=== PATIENT | female | born 1960 | race Caucasian/White ===

== ENCOUNTER 2017-07-29 22:40 | Inpatient (IN) | payer MEDICARE, MEDICAID ==
--- NOTE | 2017-07-29 23:21 | ED.PDOC ---
History of Present Illness - General Chief Complaint: Trauma Stated Complaint: fall with dizziness Time Seen by Provider: 07/29/17 22:55 Source: patient, RN notes reviewed, Vital Signs reviewed, family - son Exam Limitations: no limitations - History of Present Illness Initial Comments: Patient present to ER with c/o L knee pain after a fall. Reports she was returning home from [facility] around 20:30 and got dizzy walking to the house and fell injuring her L knee and hand. She was discharged from [facility] in [place] earlier today. She had a cardiac cath with stent placement there. She also is having SOB when she lays back and her ankles are swollen. These symptoms are unchanged from when she was discharged from the hospital. She was on a Lasix drip while in hospital and is suppose to take Lasix 40mg BID but has not taken her evening dose yet. Timing/Duration: momentarily Severity: mild Improving Factors: rest Worsening Factors: movement Associated Symptoms: shortness of breath Allergies/Adverse Reactions: Allergies Morphine Allergy (Verified 07/29/17 23:32) Home Medications: Ambulatory Orders Acyclovir [Zovirax] 800 mg PO Q8HR #12 tab 03/24/15 Mupirocin 2 % Oint [Bactroban Oint] 1 applic TOP BID #1 appli 03/24/15 Review of Systems - Review of Systems Constitutional: States: no symptoms reported Respiratory: States: see HPI, short of breath. Denies: cough Cardiology: States: see HPI, edema Gastrointestinal/Abdominal: States: no symptoms reported Musculoskeletal: States: joint pain - L knee, joint swelling - L knee Skin: States: other - abrasions L hand/wrist Neurological: States: see HPI, other - Report she does get dizzy when she takes her Coreg. Denies: headache, numbness, paresthesia, tingling, weakness All other Systems: No Change from Baseline Past Medical History (General) - Patient Medical History Hx Stroke: No Hx Cardiac Disorders: Yes - AK Hx Congestive Heart Failure: Yes Hx Hypertension: Yes Hx Thyroid Disease: Yes Hx Diabetes: Yes Hx Gastroesophageal Reflux: Yes Hx Cancer: No Hx Hepatitis C: No Hx MRSA: Yes MRSA Source:: Wound Surgical History: cholecystectomy, coronary bypass surgery - Vaccination History Hx Tetanus, Diphtheria Vaccination: Yes Hx Influenza Vaccination: Yes Hx Pneumococcal Vaccination: Yes Immunizations Up to Date: Yes - Social History Hx Tobacco Use: Yes Hx Alcohol Use: No Hx Substance Use: No Hx Substance Use Treatment: No Hx Depression: No Hx Physical Abuse: No Hx Emotional Abuse: No Hx Suspected Abuse: No - Female History Patient is a Female of Child Bearing Age (10 -59 yrs old): Yes Patient : No Family Medical History - Family History Mother Living Status: Hx Cardiac Disease: Yes Physical Exam - Physical Exam General Appearance: Agitated, Comfortable, No apparent distress, Well Developed , Well Groomed, Well Hydrated, Well Nourished Ears, Nose, Throat: hearing grossly normal Neck: supple, normal inspection Respiratory: no respiratory distress, no accessory muscle use Peripheral Pulses: dorsalis pedis,right: 2+, dorsalis pedis,left: 2+ Extremity: pedal edema - 1-2+ bilateral ankles, swelling - L knee: swelling with few abrasions and bruising. Tender over patella and medial tibial plateau Neurologic: no motor/sensory deficits, alert, normal mood/affect, oriented x 3 Skin Exam: normal color, warm/dry, other - L thenar eminence: 2 abrasions Comments: Vital Signs 07/29/17 22:58 Temperature 98.2 F Pulse Rate [ 70 Left Radial] Respiratory 22 Rate Blood Pressure 137/64 [Left Arm] O2 Sat by Pulse 88 L Oximetry Progress - Progress Progress: 07/30/17 00:[address] Hung - will admit for CHF - Results/Orders Results/Orders: Laboratory Tests 07/29/17 23:30 B-Natriuretic Peptide 1070.0 H* - EKG/XRAY/CT XRAY: knee - Linear lucency of tibia tuberocity - may represent a non-displaced fracture per Radiologist. - Additional EKG/XRAY/Consults XRAY #2: chest - Cardiomegaly with interstitial pulmonary edema per Radiologist. Departure - Departure Clinical Impression: Congestive heart failure (CHF) Qualifiers: Congestive heart failure type: unspecified congestive heart failure type Congestive heart failure chronicity: acute on chronic Qualified Code(s): I50.9 - Heart failure, unspecified Fracture of tibial tuberosity Qualifiers: Encounter type: initial encounter Fracture type: closed Fracture alignment: nondisplaced Laterality: left Qualified Code(s): S82.155A - Nondisplaced fracture of left tibial tuberosity, initial encounter for closed fracture Time of Disposition: 00:50 Disposition: Admit Patient Condition: Poor Home Medications: Ambulatory Orders Acyclovir [Zovirax] 800 mg PO Q8HR #12 tab 03/24/15 Mupirocin 2 % Oint [Bactroban Oint] 1 applic TOP BID #1 appli 03/24/15 Decision To Admit - Decistion To Admit Decision to Admit Reason: Admit from ER Decision to Admit Date: 07/30/17 Decision to Admit Time: 00:42
--- NOTE | 2017-07-29 23:41 | RAD ---
EXAM DESCRIPTION: Chest,1 View CLINICAL HISTORY: SOB/worse with laying back COMPARISON: None. FINDINGS: Single frontal view of the chest. Cardiomegaly with pulmonary vascular congestion. Prior median sternotomy. Interstitial edema without large effusion or pneumothorax. Degenerative change of the shoulders. Upper abdominal soft tissues are unremarkable. IMPRESSION: Cardiomegaly with interstitial pulmonary edema. Electronically signed by: Umair Gonzalez 07/29/2017 11:40 PM RAD TECHNOLOGIST
--- NOTE | 2017-07-29 23:44 | RAD ---
EXAM DESCRIPTION: Knee,Left 2 or More Views CLINICAL HISTORY: Fell on L knee. Pain. COMPARISON: None. FINDINGS: Osteopenia. Small joint effusion. Atherosclerotic vascular calcification. Linear lucency over the tibial tuberosity. This may represent a nondisplaced fracture. Postoperative change in the medial aspect of the knee. IMPRESSION: 1. Linear lucency of the tibial tuberosity may represent a nondisplaced fracture. Follow-up radiographs or MRI of the knee may be helpful for more definitive characterization. Electronically signed by: Umair Gonzalez 07/29/2017 11:43 PM [facility]
[2017-07-30] MEDS ORDERED: FUROSEMIDE INJ 40 MG/4 ML VIAL IV ONE (00:44)
[2017-07-30] MEDS ORDERED: ALBUTEROL SULFATE 2.5 MG/3 ML VIAL NEB PRN (01:06)
[2017-07-30] MEDS ORDERED: MAGNESIUM HYDROXIDE 30 ML UD PO PRN (01:06)
[2017-07-30] MEDS ORDERED: ACETAMINOPHEN 325 MG TAB PO PRN (01:06)
[2017-07-30] MEDS ORDERED: NITROGLYCERIN 0.4 MG 25 EA TAB SL PRN (01:06)
--- NOTE | 2017-07-30 01:12 | HP ---
HISTORY OF PRESENT ILLNESS: This 57-year-old, white female was feeling poorly when she went to [facility] last evening after being discharged from [facility] in [place] earlier during the day of yesterday. She apparently lost her balance and fell on her left knee and was unable to support weight on the knee and had significantly worsening shortness of breath. She has had trouble lying down with significant worsening shortness of breath with pedal edema. She is not on a fluid restriction. She has been on some Lasix, but apparently may have even skipped a dose yesterday during the day. She has a lead janitor, Dr. Vazquez, in [place] who discharged her from [facility] yesterday. In the Emergency Room, she had a pulse oximetry of only 88% suggesting a degree of hypoxia. She had had an angiogram performed through probably the left radial artery, but she states they did not do stents or angioplasty. She has had some angina and was originally told she may have a small heart attack at the [facility], which they did not she had heart attack when she was at the [place] cardiology service. She has had coronary artery bypass grafting at [place] in 2014 which was successfully completed. The patient was admitted to the hospital with congestive heart failure, chronic, with an acute exacerbation , poorly compensated and very symptomatic and inability to walk because of the left knee injury requiring orthopedic advice on the best treatment and further diagnostic investigation if needed. Special attention to fall risk. PAST MEDICAL HISTORY: 1. Congestive heart failure. 2. Diabetes mellitus, which she has had for years taking Lantus 40 units in the morning and 20 units in the evening. 3. History of coronary artery disease as well as chronic obstructive pulmonary disease in a chronic smoker, now stopped for two weeks. PAST SURGICAL HISTORY: 1. Cholecystectomy. 2. Three C-sections. 3. Coronary artery bypass grafting in 2015 in [place]. CURRENT MEDICATIONS: Please refer to nursing notes. ALLERGIES: MORPHINE. FAMILY HISTORY: Positive for coronary artery disease, diabetes mellitus and cancer. SOCIAL HISTORY: She has been a cook in restaurants and is currently living with her son in [place]. She stopped smoking about two weeks ago and is encouraged to stay stopped. REVIEW OF SYSTEMS: GENERAL: The patient admits to having gained about 8 pounds over the last week, especially while in the [facility], which may be attributed to by some of the fluid accumulation during the transition period. LUNGS: Significant shortness of breath on exertion as well as on lying down. CARDIOVASCULAR: No significant chest pains at this time. No palpitations. History of congestive heart failure worsening. GASTROINTESTINAL: Some nausea without emesis. No bleeding int he stools. GENITOURINARY: No dysuria. NEUROLOGIC: No focal neurologic weakness, but she is generally weak all over. PHYSICAL EXAMINATION: VITAL SIGNS: Afebrile. Pulse 71. Blood pressure 175/81. Pulse oximetry 88% on room air, up to 94% on 2 liters nasal cannula. Weight 75.8 kg on the bed scale, which is approximately 4 kg more than what the patient estimated her weight to be. GENERAL: The patient is fairly awake and alert. She is unable to get up and walk because of pain in her left knee. HEENT: Unremarkable. NECK: There is some increased jugular venous distention at about 45 degrees, primarily on the right side. LUNGS: Some rales upon inspiration, both bases. CARDIOVASCULAR: Heart tones are fairly regular without any significant gallops. ABDOMEN: Soft with no organomegaly, masses or tenderness. EXTREMITIES: Some pitting edema and discomfort especially noted within the knee joint behind the patella on the left. She does have some skin abrasions over the patella from her recent fall. Pedal edema evident. NEUROLOGIC: No significant focal neurological deficits are noted. LABORATORY: White count 9,100, hemoglobin 11.8, 82% neutrophils. Chemistries show sodium 132, potassium 4.8, BUN 17, creatinine 1.42, glucose 108. Hemoglobin A1c pending. TSH almost 4. Troponin elevated at 0.27, possibly as a result of elevated beta natriuretic peptide of 1,070. Albumin 3.1. No cultures. Chest x-ray does show evidence of cardiomegaly with pulmonary edema. Left knee x-ray shows the possibility of a lucent line on the left tibial tuberosity, may represent a nondisplaced fracture. No cortical involvement with the injury otherwise evident. Orthopedic evaluation to determine if further radiographs or MRI would be helpful in ascertaining what the next step in treatment and stabilization will be. ASSESSMENT: 1. Chronic congestive heart failure of undetermined type with an acute exacerbation with elevated beta natriuretic peptide, pedal edema and pulmonary edema on x-ray. 2. Acute fall last evening. 3. Left knee injury with possible tibia fracture with further orthopedic evaluation in progress. 4. Diabetes mellitus, on insulin therapy, awaiting review of her home medications and continue with sliding scale and adjustments of treatment as required. 5. Hyponatremia, probably related to excessive free water, requiring fluid restrictions and gentle loop diuresis. PLAN: Await Dr. Ford's orthopedic evaluation of the left knee before able to get the patient up because of the discomfort and to make sure there is no underlying fracture. Continue with fluid restrictions, gentle diuresis, close followup of I&Os and diabetes management. Recheck lab in the morning. Continue basis treatment and will eventually go home when stable on fluid restrictions, diuresis, and an improved medication program for home use and followup in [place]. #[id number] [facility]
[2017-07-30] MEDS ORDERED: KETOROLAC TROMETHAMINE INJ 30 MG/ML VIAL IV ONE (01:18)
--- NOTE | 2017-07-30 01:26 | PCM.CORE ---
Physician DVT/VTE - 3-4 High Risk Treatments: Sequential Compression Device
[2017-07-30] MEDS: SODIUM CHLORIDE 0.9% (FLUSH) 10 ML SYG IV SCH ×3 (02:43→20:53)
[2017-07-30] MEDS: KETOROLAC TROMETHAMINE INJ 30 MG/ML VIAL IV SCH ×3 (02:43→17:20)
[2017-07-30] MEDS: IV SET AND CAP CHANGE INJ INJ SCH (02:44)
[2017-07-30] MEDS: LEVALBUTEROL NEBS 1.25 MG/3 ML VIAL INH SCH ×4 (03:15→21:00)
[2017-07-30] MEDS ORDERED: POTASSIUM CHLORIDE 20 MEQ TAB ONE ×2 (08:39→19:56)
[2017-07-30] MEDS ORDERED: SODIUM CHLORIDE 0.9% 10 ML VIAL ONE (08:39)
[2017-07-30] MEDS: ASPIRIN (CHEWABLE) 81 MG TAB PO SCH (08:48)
[2017-07-30] MEDS: FUROSEMIDE INJ 20 MG/2 ML VIAL IV SCH ×2 (08:48→17:21)
[2017-07-30] MEDS: RAMIPRIL 2.5 MG CAP PO SCH (08:48)
[2017-07-30] MEDS: POTASSIUM CHLORIDE 10 MEQ TAB PO SCH (08:51)
[2017-07-30] MEDS: traMADol HCL 50 MG TAB PO PRN ×3 (09:39→16:25)
[2017-07-30] MEDS ORDERED: GLUCAGON INJ 1 MG VIAL SUBCU PRN (10:20)
[2017-07-30] MEDS ORDERED: DEXTROSE 50% 25 GM/50 ML SYG IV PRN (10:20)
[2017-07-30] MEDS: INSULIN DETEMIR 100 UNITS/ML PEN SUBCU SCH (12:02)
[2017-07-30] MEDS: INSULIN LISPRO 100 UNITS/ML PEN SUBCU SCH ×3 (12:03→21:07)
[2017-07-30] MEDS: SODIUM CHLORIDE 0.9% (FLUSH) 10 ML SYG IV PRN (17:24)
[2017-07-30] MEDS: ISOSORBIDE MONONITRATE (IMDUR) 30 MG TAB PO SCH (20:47)
[2017-07-30] MEDS: cloNIDine HCL 0.1 MG TAB PO SCH (20:47)
[2017-07-30] MEDS: CARVEDILOL 3.125 MG TAB PO SCH (20:47)
[2017-07-30] MEDS: GABAPENTIN 300 MG CAP PO SCH (20:51)
[2017-07-30] MEDS ORDERED: NON-FORMULARY MEDICATION 1 EA MIS (Potassium Chloride [Potassium Chloride Er] 20 MEQ) PO SCH (21:00)
[2017-07-31] MEDS: KETOROLAC TROMETHAMINE INJ 30 MG/ML VIAL IV SCH ×2 (01:25→10:28)
[2017-07-31] MEDS: traMADol HCL 50 MG TAB PO PRN ×2 (06:08→17:19)
--- NOTE | 2017-07-31 06:48 | RAD ---
Procedure: XR CHEST 1 VIEW Exam Date: 07/31/2017 Ordering Provider: EDMUNDO GRAVES Clinical Indication: CHF Comparison: 07/29/2017 Findings: Residuals of thoracic surgery. Cardiomediastinal silhouette is stable. Focal lung consolidation: Central vascular congestion with interstitial prominence bilaterally. No focal lung consolidation. Pleural effusion: No large pleural effusions. Pneumothorax: None Bones and soft tissues: No acute osseous abnormalities. Impression: 1. Mild CHF without significant pleural effusion. Electronically signed by: Gera Brothers MD 07/31/2017 6:47 AM [facility]
[2017-07-31] MEDS: INSULIN LISPRO 100 UNITS/ML PEN SUBCU SCH ×4 (07:07→20:51)
--- NOTE | 2017-07-31 08:05 | CONS ---
CHIEF COMPLAINT: Left knee pain. HISTORY OF PRESENT ILLNESS: Ms. Saravia is a 57-year-old female that fell on the day of presentation. She had ended up with knee pain. She denied any other trauma related to this fall, but states she has pain in the knee that is preventing her from doing walking. She has been admitted and I was consulted for this. PAST MEDICAL HISTORY: 1. Congestive heart failure. 2. Diabetes. 3. Coronary artery disease. PAST SURGICAL HISTORY: 1. Cholecystectomy. 2. Three . 3. Bypass grafting. MEDICATIONS: Please refer to the updated nursing list. ALLERGIES: MORPHINE. SOCIAL HISTORY: The patient does not drink or use any illicit drugs. She does smoke. FAMILY HISTORY: Positive for coronary artery disease and diabetes. REVIEW OF SYSTEMS: Negative except as indicated in the History of Present Illness. PHYSICAL EXAMINATION: VITAL SIGNS: Blood pressure 175/81. Pulse oximetry 88%. Weight 75.8. Pulse 71. Afebrile. MENTAL STATUS: The patient is awake, alert, and is able to give a good history and participate in the physical. The patient is oriented to person, place and time. SKIN: Normal tone and turgor. HEENT: Normocephalic, atraumatic. Pupils equal, round and reactive. Mucosal membranes are moist. NECK: Normal range of motion. No thyromegaly, no lymphadenopathy. CHEST: Normal respiratory excursion. CARDIAC: Regular rate and rhythm. No murmurs, rubs or gallops. MUSCULOSKELETAL: Bilateral upper extremities show full active range of motion without pain. She has intact sensation. They are warm and well perfused. There are no deformities and no evidence of trauma. The right lower extremity shows full range of motion of the hip. There is no malalignment of the extremity. The knee shows full range of motion. Sensation is intact. There is no evidence of trauma. She has no crepitus with range of motion. The left lower extremity shows full range of motion of the hip although range of motion of the knee is somewhat decreased. She is fully extend it and she is bending it although she does complain of pain. She does have some superficial abrasions. Sensation is intact. It is warm and well perfused. There is no significant effusion right now. IMAGING: I do not see any evidence of fracture on the x-ray, however, the radiologist was concerned that there may be a nondisplaced fracture. As such, I have requested an MRI, however, we are still waiting on that MRI to get done. PLAN: Until the MRI is done, we will keep her in bed and [id number]. We have discussed the risks, benefits, and alternatives to that and the patient has given informed consent. #[id number] [facility]
[2017-07-31] MEDS: POTASSIUM CHLORIDE 10 MEQ TAB PO SCH (08:12)
[2017-07-31] MEDS ORDERED: FUROSEMIDE 40 MG TAB PO SCH (09:00)
[2017-07-31] MEDS ORDERED: POTASSIUM CHLORIDE 20 MEQ TAB PO SCH (09:00)
[2017-07-31] MEDS: LEVALBUTEROL NEBS 1.25 MG/3 ML VIAL INH SCH ×3 (09:05→20:45)
[2017-07-31] MEDS: ISOSORBIDE MONONITRATE (IMDUR) 30 MG TAB PO SCH (10:27)
[2017-07-31] MEDS: CLOPIDOGREL 75 MG TAB PO SCH (10:27)
[2017-07-31] MEDS: GABAPENTIN 300 MG CAP PO SCH ×3 (10:28→20:44)
[2017-07-31] MEDS: PANTOPRAZOLE SODIUM TAB 40 MG PO SCH (10:28)
[2017-07-31] MEDS: CARVEDILOL 3.125 MG TAB PO SCH ×2 (10:28→20:44)
[2017-07-31] MEDS: RAMIPRIL 2.5 MG CAP PO SCH (10:28)
[2017-07-31] MEDS: cloNIDine HCL 0.1 MG TAB PO SCH ×3 (10:29→20:44)
[2017-07-31] MEDS: amLODIPine BESYLATE 5 MG TAB PO SCH (10:29)
[2017-07-31] MEDS: SODIUM CHLORIDE 0.9% (FLUSH) 10 ML SYG IV SCH ×2 (10:29→20:45)
[2017-07-31] MEDS: ASPIRIN (CHEWABLE) 81 MG TAB PO SCH (10:29)
[2017-07-31] MEDS: INSULIN DETEMIR 100 UNITS/ML PEN SUBCU SCH (10:32)
[2017-07-31] MEDS: PARoxetine HCL 20 MG TAB PO SCH (10:33)
[2017-07-31] MEDS: FUROSEMIDE INJ 20 MG/2 ML VIAL IV SCH ×2 (11:28→17:20)
--- NOTE | 2017-07-31 12:26 | MRI ---
EXAM DESCRIPTION: MRI left knee CLINICAL HISTORY: Fall injury 2 days ago. Left knee fracture COMPARISON: Plain radiograph 07/29/2017 TECHNIQUE: Multiplanar, multisequence MR images of the left knee FINDINGS: Nondisplaced fracture of the anterior tibia, oblique transverse across the tibial tubercle and stellate trabecular microfracture extending into the epiphysis and metaphysis. There is no cortical offset. Minimal nondisplaced trabecular fracture extension to the anterior margin of the lateral tibial plateau. Axial images demonstrate the fracture marginating the tibial tubercle superiorly. No other fracture ACL, PCL, MCL and fibular collateral ligaments are intact No medial or lateral meniscal tear. Medial femorotibial chondrosis with chondral thinning and surface irregularity. No full-thickness chondral loss or focal osteochondral lesion Medial facet patellar chondrosis with chondral fissuring and a tiny focus of edema. Femoral trochlear cartilage intact Biceps femoris, popliteus and iliotibial band tendons are intact. Patellar and quadriceps tendons and tendons of the posterior medial knee are intact Moderate joint effusion. No intra-articular body IMPRESSION: Nondisplaced fracture of the anterior tibia involving the tibial tubercle with stellate trabecular microfracture extending into the metaphysis and anterior lateral epiphysis Electronically signed by: Hay Turner MD 07/31/2017 12:25 PM [facility]
[2017-07-31] MEDS ORDERED: GABAPENTIN 300 MG CAP ONE (15:48)
--- NOTE | 2017-07-31 20:02 | PN ---
DATE: 07/31/17 SUPERVISING PHYSICIAN: Eugenio Norman M.D. SUBJECTIVE: The patient is resting in bed. She has no complaints of chest pains, nausea or vomiting. She has had her leg elevated and has good pain control. She remains afebrile. OBJECTIVE: VITAL SIGNS: Temperature 97.8, pulse 66, blood pressure 139/82, respirations 19, satting 92% on nasal cannula at rest at 1 liter. I's and O's show a negative balance of 4290 with 1460 in, 5750 out, weight 69.5 kg. CHEST: Lungs still have very faint rales more so on the left than the right towards the bases and slightly diminished. HEART: Regular rate and rhythm. ABDOMEN: Soft, non-tender. Positive bowel sounds. EXTREMITIES: No clubbing, cyanosis or edema today. The abrasion over the patellar area of the left knee shows to be clean with minimal swelling. NEUROLOGIC: She is alert and oriented times three. LABORATORY: CBC shows a white count of 6,900 with hemoglobin 10.6, hematocrit 31.3, platelet count 165,000. Differential shows to be within normal limits. Chemistries show normal electrolytes with potassium 4.4, BUN 22, creatinine 1.58 , glucoses have been fairly well controlled between 129 and 181, calcium 8.2. Troponin does show elevation at 0.34. RADIOLOGY: Pending MRI of the left knee. Chest x-ray single view chest per radiology interpretation today shows mild congestive heart failure without any significant pleural effusion. ASSESSMENT: 1. Acute on chronic congestive heart failure with undetermined etiology with acute exacerbation with a review of medical records from last cardiovascular angiogram performed at [facility] this past week shows an ejection fraction of 35% with the patient having an elevated BNP on admission, pedal edema and pulmonary edema on x-ray. The patient showing good response to loop diuretics and fluid restriction. 2. Acute fall same level with concern for a possible tibia fracture with orthopedic evaluation and MRI pending. 3. Diabetes mellitus on insulin therapy showing to be stable on sliding scale. 4. Hyponatremia secondary to excessive free water intake requiring fluid restrictions and gentle loop diuresis showing improvement with treatment. PLAN: Will continue to have the patient nonweightbearing until further evaluated with MRI of the left knee and further recommendations per orthopedic services with Dr. Ford. Will continue with diuresis with Lasix and monitor her I 's and O's closely as well as her laboratory studies. Will recheck labs in the morning. I have requested medical records if possible from [facility] and Discharge Summary for further evaluation of past findings on hospitalization while at [facility]. Will continue with current treatment plan until the patient shows to be clinically stable. Until then, continue to monitor and treat appropriately. Once discharged, the patient will be continued as an outpatient treatment plan and closely followup with her primary care provider in [place], [place]. [facility][id number] [facility]
[2017-08-01] MEDS: traMADol HCL 50 MG TAB PO PRN ×3 (06:12→20:56)
[2017-08-01] MEDS: PANTOPRAZOLE SODIUM TAB 40 MG PO SCH (06:12)
--- NOTE | 2017-08-01 06:44 | RAD ---
EXAM DESCRIPTION: Chest,1 View CLINICAL HISTORY: CHF COMPARISON: 07/31/2017 FINDINGS: Single frontal view of the chest. Cardiomegaly. Prior median sternotomy. Bilateral interstitial opacities. No pneumothorax or definite pleural effusion. Leads overlie the chest. Postoperative change in the right upper abdomen. IMPRESSION: 1. Cardiomegaly with pulmonary edema. No significant change. Electronically signed by: Umair Gonzalez 08/01/2017 6:43 AM [employer] C[employer]
[2017-08-01] MEDS: INSULIN LISPRO 100 UNITS/ML PEN SUBCU SCH ×4 (07:44→20:52)
[2017-08-01] MEDS: POTASSIUM CHLORIDE 10 MEQ TAB PO SCH (07:47)
[2017-08-01] MEDS: LEVALBUTEROL NEBS 1.25 MG/3 ML VIAL INH SCH ×3 (08:33→20:11)
[2017-08-01] MEDS: INSULIN DETEMIR 100 UNITS/ML PEN SUBCU SCH (09:16)
[2017-08-01] MEDS: GABAPENTIN 300 MG CAP PO SCH ×2 (09:22→20:50)
[2017-08-01] MEDS: CLOPIDOGREL 75 MG TAB PO SCH (09:22)
[2017-08-01] MEDS: PARoxetine HCL 20 MG TAB PO SCH (09:23)
[2017-08-01] MEDS: CARVEDILOL 3.125 MG TAB PO SCH ×2 (09:24→20:50)
[2017-08-01] MEDS: amLODIPine BESYLATE 5 MG TAB PO SCH (09:24)
[2017-08-01] MEDS: cloNIDine HCL 0.1 MG TAB PO SCH ×3 (09:24→20:50)
[2017-08-01] MEDS: ISOSORBIDE MONONITRATE (IMDUR) 30 MG TAB PO SCH (09:24)
[2017-08-01] MEDS: RAMIPRIL 2.5 MG CAP PO SCH (09:24)
[2017-08-01] MEDS: FUROSEMIDE INJ 20 MG/2 ML VIAL IV SCH ×2 (09:24→17:27)
[2017-08-01] MEDS: ASPIRIN (CHEWABLE) 81 MG TAB PO SCH (09:24)
[2017-08-01] MEDS: SODIUM CHLORIDE 0.9% (FLUSH) 10 ML SYG IV SCH ×2 (09:24→20:50)
--- NOTE | 2017-08-01 15:17 | PN ---
DATE: 08/01/17 The MRI that we ordered did get done now. It appears that she has a nondisplaced fracture of the anterior tibia. Because of this fracture we need to be very careful with her weightbearing status because it does look as though it is on the anterior aspect, although nondisplaced I do want to have her both nonweightbearing and in an immobilizer for the time being. We are going to start with physical therapy and she is going to be transfers only. #[id number] [facility]
[2017-08-01] MEDS: SODIUM CHLORIDE 0.9% (FLUSH) 10 ML SYG IV PRN (17:27)
[2017-08-01] MEDS: ENOXAPARIN SODIUM 40 MG/0.4 ML SYG SUBCU SCH (17:27)
--- NOTE | 2017-08-01 22:36 | PN ---
DATE: 08/01/17 SUPERVISING PHYSICIAN: Eugenio Norman M.D. SUBJECTIVE: The patient is resting in bed with her leg elevated. She has had good pain control. She remains with a [place] in place for accurate I's and O's and continues with Lasix showing good response. She has had no chest pains, nausea or vomiting. OBJECTIVE: VITAL SIGNS: Temperature 98.6, pulse 65, blood pressure 148/84, respirations 20, satting 96% on nasal cannula at rest at 1 liter. I's and O's show a negative balance of 810 with 1340 in, 2150 out. Weight is 60.3 kg. CHEST: Lungs are much improved today, continue to be diminished towards the bases but no rales or rhonchi are noted. HEART: Regular rate and rhythm. ABDOMEN: Soft, non-tender. Positive bowel sounds. EXTREMITIES: No clubbing, cyanosis or edema. NEUROLOGIC: She was alert and oriented times three. RADIOLOGY: Chest x-ray per radiology interpretation of single view chest shows cardiomegaly with pulmonary edema. No significant changes. Her MRI showed a nondisplaced fracture of the anterior left tibia. Please see that report for full details. ASSESSMENT: 1. Acute on chronic congestive heart failure with undetermined etiology with an acute exacerbation with last echocardiogram from medical record review from [place] showing an ejection fraction of 35% with the patient having an elevated BNP on admission having pedal edema and pulmonary edema on x-ray continued but showing good response with loop diuretics and fluid restrictions. 2. Acute same level fall with a nondisplaced fracture of the left anterior tibia as noted on MRI and being followed by Dr. Ford, orthopedic services. 3. Diabetes mellitus on insulin therapy showing some variability in blood sugars continuing to require ongoing management on a sliding scale. 4. Hyponatremia secondary to excessive fluid intake prior to admission showing resolution with diuretics and fluid restrictions. PLAN: The patient will be placed in a knee brace as per Dr. Ford's request. She is nonweightbearing and will need aggressive physical therapy to assist with transfers only. The patient does live with her son but discussed need for ongoing termite technician physical therapy or termite technician care such as [facility] or [facility] or other facility available in [place] given that she is going to be transfer only and nonweightbearing for a length of time. In regards to congestive heart failure, it is showing improving. Will continue with Lasix today and fluid restrictions. Her troponin did showed to be returning to baseline today. Will continue with close monitoring and anticipate hopefully discharging Thursday or Thursday after arrangements can be made for the patient to be placed in either termite technician care facility or fpc, and again with reassessment with physical therapy. Until discharge, will continue to monitor the patient closely and treat appropriately. [facility][id number] [facility]
[2017-08-02] MEDS: IV SET AND CAP CHANGE INJ INJ SCH (05:59)
[2017-08-02] MEDS: PANTOPRAZOLE SODIUM TAB 40 MG PO SCH (06:00)
[2017-08-02] MEDS: POTASSIUM CHLORIDE 10 MEQ TAB PO SCH (08:30)
[2017-08-02] MEDS: INSULIN LISPRO 100 UNITS/ML PEN SUBCU SCH ×4 (08:36→21:26)
[2017-08-02] MEDS: ISOSORBIDE MONONITRATE (IMDUR) 30 MG TAB PO SCH (08:52)
[2017-08-02] MEDS: CLOPIDOGREL 75 MG TAB PO SCH (08:52)
[2017-08-02] MEDS: CARVEDILOL 3.125 MG TAB PO SCH ×2 (08:52→21:26)
[2017-08-02] MEDS: cloNIDine HCL 0.1 MG TAB PO SCH ×3 (08:52→21:26)
[2017-08-02] MEDS: ASPIRIN (CHEWABLE) 81 MG TAB PO SCH (08:52)
[2017-08-02] MEDS: FUROSEMIDE INJ 20 MG/2 ML VIAL IV SCH ×2 (08:52→16:14)
[2017-08-02] MEDS: amLODIPine BESYLATE 5 MG TAB PO SCH (08:52)
[2017-08-02] MEDS: INSULIN DETEMIR 100 UNITS/ML PEN SUBCU SCH (08:53)
[2017-08-02] MEDS: GABAPENTIN 300 MG CAP PO SCH ×2 (08:53→21:26)
[2017-08-02] MEDS: PARoxetine HCL 20 MG TAB PO SCH (08:53)
[2017-08-02] MEDS: RAMIPRIL 2.5 MG CAP PO SCH (08:53)
[2017-08-02] MEDS: SODIUM CHLORIDE 0.9% (FLUSH) 10 ML SYG IV SCH ×2 (08:54→21:27)
[2017-08-02] MEDS: ENOXAPARIN SODIUM 40 MG/0.4 ML SYG SUBCU SCH (08:59)
[2017-08-02] MEDS: traMADol HCL 50 MG TAB PO PRN ×2 (08:59→19:49)
[2017-08-02] MEDS: LEVALBUTEROL NEBS 1.25 MG/3 ML VIAL INH SCH ×3 (09:19→19:45)
--- NOTE | 2017-08-02 18:51 | PN ---
DATE: 08/02/17 SUPERVISING PHYSICIAN: Eugenio Norman M.D. SUBJECTIVE: The patient continues to do well. She was placed in a temporary knee brace yesterday given the nature of her fracture. She remains afebrile. She has shown good response with diuresis and feeling much better. I did discuss with the son and the patient. They are looking at going to a facility in [place] once discharged for continued care. OBJECTIVE: VITAL SIGNS: Temperature 97.6, pulse 52, blood pressure 138/80, respirations 18, satting 97% on nasal cannula at 1 liter at rest. I's and O's show a negative balance of 1860 with 1790 in, 3650 out. Weight 69.5 kg which is up, but the patient did have a brace placed yesterday and I do not think there was compensation for the additional weight. CHEST: Lungs are clear to auscultation, just diminished towards the bases but no rhonchi or rales were noted. HEART: Regular rate and rhythm. ABDOMEN: Soft, non-tender. Positive bowel sounds. EXTREMITIES: No clubbing, cyanosis or edema. Brace is in place over the left leg. Capillary refill distally is strong and brisk. Skin is warm to touch. NEUROLOGIC: She is alert and oriented times three. LABORATORY: Chemistries today show normal electrolytes with BUN 30, creatinine is down to 1.28, glucoses have been in between 106 to 291. ASSESSMENT: 1. Acute on chronic congestive heart failure with undetermined etiology with an acute exacerbation from last echocardiogram [place] [facility] [place] showing an ejection fraction of 35% with the patient having an elevated BNP on admission having pedal edema and pulmonary edema on x-ray initially showing good improvement with good response with loop diuretics and fluid restrictions. 2. Acute same level fall with a nondisplaced fracture of the left anterior tibia as noted on MRI with the patient requiring ongoing physical therapy and no weightbearing status followed by Dr. Jeremy Ford requiring intensive outpatient treatment plan for physical therapy. 3. Diabetes mellitus on insulin therapy showing some variability although fairly stable on a sliding scale. 4. Hyponatremia, resolved felt to be secondary to excessive fluid prior to admission showing good response with diuretics and fluid restrictions. PLAN: The patient was placed in a knee brace yesterday. She will need physical therapy assessment in the morning and to assist with transfers only as she will be nonweightbearing. The family has started discussion with a facility in [place], they are unsure of the name but I've ordered a consultation for [facility] as that is where the patient is anticipating going at time of discharge. Medically the patient has shown good improvement. Will continue again with Lasix today by IV and anticipate hopefully being able to discharge tomorrow. I will transition her to p.o. Lasix. She does remain on fluid restrictions and is doing well. Until discharge, will continue to monitor and treat appropriately. #[id number] [facility]
[2017-08-03] MEDS: PANTOPRAZOLE SODIUM TAB 40 MG PO SCH (06:17)
--- NOTE | 2017-08-03 07:57 | RAD ---
EXAM DESCRIPTION: Chest,1 View CLINICAL HISTORY: Congestive heart failure FINDINGS/ IMPRESSION: Comparison 08/01/2017 Heart size slightly enlarged. Vascular congestion. Mild increased interstitial markings compatible with interstitial edema. This has worsened compared to previous study. No dense alveolar consolidation. No large effusions Electronically signed by: Hay Turner MD 08/03/2017 7:56 AM [facility]
--- NOTE | 2017-08-03 08:17 | PN ---
DATE: 08/03/17 Ms. Saravia did indeed seem to have a fracture and we are going to get her in a hinged knee brace today. She will continue to be [id number] and will followup with us in about 2 weeks. We will consider progressing weight-bearing once we see evidence of healing and improvement in her pain. #[id number] [facility]
[2017-08-03] MEDS: INSULIN LISPRO 100 UNITS/ML PEN SUBCU SCH ×4 (08:24→21:12)
[2017-08-03] MEDS: POTASSIUM CHLORIDE 10 MEQ TAB PO SCH (08:26)
[2017-08-03] MEDS: PARoxetine HCL 20 MG TAB PO SCH (08:26)
[2017-08-03] MEDS: ASPIRIN (CHEWABLE) 81 MG TAB PO SCH (08:27)
[2017-08-03] MEDS: CLOPIDOGREL 75 MG TAB PO SCH (08:27)
[2017-08-03] MEDS: ISOSORBIDE MONONITRATE (IMDUR) 30 MG TAB PO SCH (08:27)
[2017-08-03] MEDS: ENOXAPARIN SODIUM 40 MG/0.4 ML SYG SUBCU SCH (08:27)
[2017-08-03] MEDS: RAMIPRIL 2.5 MG CAP PO SCH (08:27)
[2017-08-03] MEDS: cloNIDine HCL 0.1 MG TAB PO SCH ×3 (08:27→21:03)
[2017-08-03] MEDS: amLODIPine BESYLATE 5 MG TAB PO SCH (08:27)
[2017-08-03] MEDS: GABAPENTIN 300 MG CAP PO SCH ×2 (08:28→21:04)
[2017-08-03] MEDS: SODIUM CHLORIDE 0.9% (FLUSH) 10 ML SYG IV SCH ×2 (08:28→21:04)
[2017-08-03] MEDS: INSULIN DETEMIR 100 UNITS/ML PEN SUBCU SCH (08:35)
[2017-08-03] MEDS: FUROSEMIDE 40 MG TAB PO SCH (08:35)
[2017-08-03] MEDS: traMADol HCL 50 MG TAB PO PRN ×2 (08:46→16:10)
[2017-08-03] MEDS: CARVEDILOL 3.125 MG TAB PO SCH ×2 (08:46→21:04)
[2017-08-03] MEDS: LEVALBUTEROL NEBS 1.25 MG/3 ML VIAL INH SCH ×3 (08:57→21:11)
[2017-08-03] MEDS ORDERED: MAGNESIUM HYDROXIDE 30 ML UD PO ONE (11:20)
--- NOTE | 2017-08-03 11:50 | PN ---
DATE: 08/03/17 SUBJECTIVE: The patient is sitting up in the chair. She is still non-weight- bearing and requires fairly significant assistance in being able to transfer from the bed to the chair. She is wishing her Tidwell catheter out so she could transfer after Milk of Magnesia for bedside commode use. Appetite is improving. She feels much better with her respiratory efforts now compared especially to when she came into the hospital. OBJECTIVE: VITAL SIGNS: The patient has had good diuresis since admission with fairly significant weight loss also present, no doubt contributing to her respiratory improvement. LUNGS: Relatively clear. HEART: Regular. ABDOMEN: Soft, though slightly distended with the patient not having had a bowel movement recently. LABORATORY: Repeat chest x-ray performed today still shows the cardiomegaly with vascular congestion, probably suggesting a delayed film improvement compared to the clinical improvement noted. Close followup is suggested. Chemistries today show potassium 4.4, BUN stable at 30, creatinine 1.31. Fasting glucose 93. Beta natriuretic peptide elevated at 1,770. ASSESSMENT: 1. Acute on chronic congestive heart failure with undetermined etiology with an acute exacerbation from last echocardiogram from medical [place] [facility] [place] showing an ejection fraction of 35% with the patient having an elevated BNP on admission having pedal edema and pulmonary edema on x-ray initially showing good improvement with good response with loop diuretics and fluid restrictions. 2. Acute same level fall with a nondisplaced fracture of the left anterior tibia as noted on MRI with the patient requiring ongoing physical therapy and no weightbearing status followed by Dr. Jeremy Ford requiring intensive outpatient treatment plan for physical therapy. 3. Diabetes mellitus on insulin therapy showing some variability although fairly stable on a sliding scale. 4. Hyponatremia, resolved felt to be secondary to excessive fluid prior to admission showing good response with diuretics and fluid restrictions. PLAN: The patient continues in the knee brace. Her Tidwell catheter is removed and she will require assistance to go to the bedside commode. Milk of Magnesia given because of no recent bowel movements. Automatic [employer] assisting with communications with the [facility] in [place] for detention care and rehabilitation continuance upon discharge. Anticipate continued outpatient management as of tomorrow. She will require close orthopedic followup with Dr. Ford in the clinic after her discharge. She has now progressed to oral diuresis with continued fluid restrictions. #[id number] [facility]
[2017-08-04] MEDS: traMADol HCL 50 MG TAB PO PRN ×2 (05:00→12:36)
[2017-08-04] MEDS: PANTOPRAZOLE SODIUM TAB 40 MG PO SCH (06:51)
[2017-08-04 07:40] VITALS: BP 163/74; TEMP 97.8
[2017-08-04] MEDS: RAMIPRIL 2.5 MG CAP PO SCH (08:09)
[2017-08-04] MEDS: ISOSORBIDE MONONITRATE (IMDUR) 30 MG TAB PO SCH (08:09)
[2017-08-04] MEDS: POTASSIUM CHLORIDE 10 MEQ TAB PO SCH (08:09)
[2017-08-04] MEDS: FUROSEMIDE 40 MG TAB PO SCH (08:09)
[2017-08-04] MEDS: CLOPIDOGREL 75 MG TAB PO SCH (08:09)
[2017-08-04] MEDS: cloNIDine HCL 0.1 MG TAB PO SCH (08:09)
[2017-08-04] MEDS: amLODIPine BESYLATE 5 MG TAB PO SCH (08:09)
[2017-08-04] MEDS: GABAPENTIN 300 MG CAP PO SCH (08:09)
[2017-08-04] MEDS: CARVEDILOL 3.125 MG TAB PO SCH (08:10)
[2017-08-04] MEDS: ENOXAPARIN SODIUM 40 MG/0.4 ML SYG SUBCU SCH (08:10)
[2017-08-04] MEDS: INSULIN LISPRO 100 UNITS/ML PEN SUBCU SCH ×2 (08:10→11:37)
[2017-08-04] MEDS: ASPIRIN (CHEWABLE) 81 MG TAB PO SCH (08:12)
[2017-08-04] MEDS: INSULIN DETEMIR 100 UNITS/ML PEN SUBCU SCH (08:16)
[2017-08-04] MEDS: LEVALBUTEROL NEBS 1.25 MG/3 ML VIAL INH SCH (08:53)
[2017-08-04] MEDS: PARoxetine HCL 20 MG TAB PO SCH (09:48)
[2017-08-04] MEDS: SODIUM CHLORIDE 0.9% (FLUSH) 10 ML SYG IV PRN (09:50)
[2017-08-04] MEDS: SODIUM CHLORIDE 0.9% (FLUSH) 10 ML SYG IV SCH (09:51)
--- NOTE | 2017-08-04 11:10 | DS ---
SUPERVISING PHYSICIAN: Hay Parker MD DISCHARGE DIAGNOSIS: 1. Acute on chronic congestive heart failure with undetermined etiology with an acute exacerbation from last echocardiogram from medical record review from the [facility] hospitalization in the last week showing an ejection fraction of 35% with the patient having an elevated BNP on admission, having pedal edema and pulmonary edema on x-ray, initially showing good improvement with good response with loop diuretics and fluid restrictions. 2. Acute same level fall with a nondisplaced fracture of the left anterior tibia as noted on MRI with the patient requiring ongoing physical therapy and non- weightbearing status followed by Dr. Jeremy Ford requiring intensive outpatient treatment plan for physical therapy. 3. Diabetes mellitus on insulin therapy showing, some variability, although fairly stable on a sliding scale as well as long-acting insulin. 4. Hyponatremia, improved felt to be secondary to excessive fluid intake prior to admission showing, good response with diuretics and fluid restrictions. HISTORY OF PRESENT ILLNESS: This is a 57-year-old, female patient who was feeling poorly who was discharged from [facility] on 07/29/17 after she had had a cardiology workup. She felt poorly afterwards and lost her balance and fell on her left knee and was unable to support weight on the knee she also had significantly worsening shortness of breath. She had trouble lying down with continued dyspnea and pedal edema. She had not been on fluid restrictions. She was on some Lasix, but had skipped her dose the day prior to her admission. In the Emergency Room, she had a pulse oximetry of 88%, suggesting some hypoxia. She had an angiogram performed while she was in [facility] via the left radial artery, but they did not do stents or angioplasty at that time. She originally had some angina and was told she may have a small heart attack at the [facility], but there was no repot of that per the [place] cardiology services. She has a history of a coronary artery bypass grafting at [place] in 2015. The patient was admitted to the hospital with chronic congestive heart failure with an acute exacerbation and inability to walk because of the left knee injury requiring orthopedic advice on the best treatment and further diagnostic investigation if needed. HOSPITAL COURSE: She was given IV Lasix and was placed on fluid restriction. She diuresed well and her symptoms improved. Dr. Ford was also consulted in regard to her left tibia fracture. He recommended initially that she would be [id number]. He had a knee MRI scheduled and per radiologic interpretation, showed nondisplaced fracture of the anterior tibia involving the tibial tubercle with stellate trabecular microfracture extending into the metaphysis and anterolateral epiphysis. He recommended because of the fracture to be careful with weight-bearing status and although nondisplaced, she was to have [id number] and an immobilizer initially. She was started on physical therapy with transfers only. She received a hinged knee brace. She was to continue on kch-[id number] status and to followup with Dr. Ford in about 2 weeks. Her symptomatology improved. Due to her fracture and non-weight -bearing status, it was decided she would go to [facility] in [place], a [facility] facility. Her vital signs have stabilized. She was also put on an ROGELIO inhibitor in the hospital. Her other blood pressure medications were adjusted and she continued on a long-acting insulin as well as sliding scale insulin. Her blood sugars stabilized as well as her labs. She has been accepted to [facility] in [place] and she is to be discharged today. PLAN: The patient will be discharged to [facility] in [place]. Her physical therapy is to be physical therapy and Dr. Ford's orders. She will continue on her sliding NovoLog insulin as well as her long- acting insulin. Sliding scale will be per a.c. and h.s. blood sugar checks. I have discontinued her ROGELIO inhibitor due to her poor kidney function. She can be evaluated when she sees her bulk tank driver as well as her primary care physician if she needs to be put back on the ROGELIO inhibitor once repeat labs are completed. She is to have a followup with YESICA Mullen, in one to two weeks. She is also supposed to see Dr. Ford in one to two weeks. She is to be discharged in good condition. Activity is to be per physical therapy. Her diet is a diabetic diet. Her discharge medications have been sent to [facility] in [place]. She is to return to the hospital or followup with her primary care physician for any further complications or problems. DISCHARGE MEDICATIONS: 1. Potassium chloride. 2. Paxil. 3. Pantoprazole. 4. Lantus. 5. Gabapentin. 6. Furosemide. 7. Plavix. 8. Clonidine. 9. Lipitor. 10. Aspirin. 11. Amlodipine. 12. Albuterol p.r.n. nebulizers. 13. Xopenex nebulizers routine. 14. Milk of Magnesia. 15. Coreg. 16. Imdur. Dr. Parker is the collaborating physician and available for consultation. #[id number] [facility]
[2017-08-04 14:38] VITALS: O2SAT 93
== END 2017-08-04 13:50 | DRG 292 ==
LOC: ER 22:40 → OBSVTOIN 07-30 01:11 → MS 07-30 01:11
PROVIDERS: ADMIT Emergency Medicine; ATTEND Nurse Practitioner Acute Care
DX: I50.9 Heart failure, unspecified (principal); S82.152A Displaced fracture of left tibial tuberosity, initial encounter for closed fracture; E87.1 Hypo-osmolality and hyponatremia; E11.9 Type 2 diabetes mellitus without complications; I25.10 Atherosclerotic heart disease of native coronary artery without angina pectoris; R09.02 Hypoxemia; Z95.1 Presence of aortocoronary bypass graft; Z88.5 Allergy status to narcotic agent

== ENCOUNTER → 2017-08-20 | Outpatient (CLI) | payer MEDICARE, MEDICAID ==
--- NOTE | 2017-08-22 13:46 | RAD ---
EXAM DESCRIPTION: Knee,Left Complete CLINICAL HISTORY: 57 years Female, KNEE PAIN COMPARISON: July 29, 2017. FINDINGS: Note is again made of faint linear lucency in the region of the lower portion of the tibial tubercle, consistent with an incomplete fracture. This appears about the same as on the last exam. There is no other evidence of acute fracture or dislocation or destructive bony lesion. There may be some bony demineralization. The tibiofemoral joint space appears fairly well maintained except that the medial compartment appears minimally more narrow than the lateral compartment. There are metallic clips at the posteromedial aspect of the knee and lower thigh. There appears to be slight interval increase in joint effusion. Vascular calcifications are noted. IMPRESSION: No significant appearing interval change in the small incomplete fracture of the proximal tibia at the level of the lower margin of the tibial tubercle. Apparent slight increase in joint effusion. Electronically signed by: Efraín Soliz 08/22/2017 1:45 PM [facility]
== END ==
LOC: RAD 10:12
PROVIDERS: ATTEND Orthopaedic Surgery
DX: M25.562 Pain in left knee (principal)

== ENCOUNTER → 2017-09-02 | Outpatient (CLI) | payer MEDICARE, MEDICAID ==
--- NOTE | 2017-09-03 08:22 | RAD ---
EXAM DESCRIPTION: Knee,Left Complete CLINICAL HISTORY: 57 years Female, FX OF TIBIAL PLATEAU COMPARISON: August 20, 2017 and an MRI from July 31, 2017 FINDINGS: Again seen is subtle lucency through the base of the anterior tibial tubercle consistent with a nondisplaced fracture at this location as described previously, non or partially united. There is no overlying soft tissue swelling. No new fracture or malalignment. Vascular calcifications are present. There is a small left knee joint effusion. Surgical clips are present in the soft tissues adjacent to the left knee. IMPRESSION: Non or partially united, nondisplaced fracture involving the left anterior tibial tubercle as described previously. No new abnormality or other significant interval change. Electronically signed by: Anil Morales MD 09/03/2017 8:21 AM [facility]
== END | disposition home or self-care (01) ==
LOC: RAD 09:12
PROVIDERS: ATTEND Orthopaedic Surgery
DX: S82.102D Unspecified fracture of upper end of left tibia, subsequent encounter for closed fracture with routine healing (principal)

== ENCOUNTER → 2017-09-17 | Outpatient (CLI) | payer MEDICARE, MEDICAID ==
--- NOTE | 2017-09-17 13:44 | RAD ---
EXAM DESCRIPTION: Knee,Left Complete CLINICAL HISTORY: CLOSED FRACTURE OF TIBIAL PLATEAU COMPARISON: MRI of the knee dated July 31, 2017. X-ray dated July 29, 2017. FINDINGS: 4 views of the left knee. No acute fractures present on today's study. Fracture line involving the inferior margin of the tibial tubercle is slightly less conspicuous with respect to the earliest radiographic comparison. Bone Mineralization appears normal. No erosions are present. No advanced osteoarthritis is present. Vein harvesting clips are Moderate atherosclerotic disease. IMPRESSION: Favorable progressive healing tibial tubercle fracture. Electronically signed by: Alfonzo Brown MD 09/17/2017 1:43 PM [facility]
== END | disposition home or self-care (01) ==
LOC: RAD 09:25
PROVIDERS: ATTEND Orthopaedic Surgery
DX: S82.102D Unspecified fracture of upper end of left tibia, subsequent encounter for closed fracture with routine healing (principal)

== ENCOUNTER → 2017-10-08 | Outpatient (CLI) | payer MEDICARE, MEDICAID ==
--- NOTE | 2017-10-12 07:52 | RAD ---
EXAM DESCRIPTION: Knee,Left Complete CLINICAL HISTORY: 57 years Female, CLOSED FX OF TIBIAL PLATEAU COMPARISON: September 17, 2017 and several older exams including an MRI performed on July 31, 2017 FINDINGS: Again seen is subtle lucency through the base of the anterior tibial tubercle, unchanged from prior exams and consistent with a known nondisplaced fracture. Subtle linear lucency seen on previous exams in the proximal tibial epiphysis is not identified on the current study. There is no cortical offset or new fracture. Vascular calcifications are noted. Surgical clips are again identified. There is no significant left knee joint effusion or hemarthrosis. IMPRESSION: Healed or healing proximal tibial fracture without complication. No new abnormality or other significant interval change. Electronically signed by: Anil Morales MD 10/12/2017 7:51 AM [facility]
== END ==
LOC: RAD 08:59
PROVIDERS: ATTEND Orthopaedic Surgery
DX: S82.102D Unspecified fracture of upper end of left tibia, subsequent encounter for closed fracture with routine healing (principal)

== ENCOUNTER 2017-10-19 15:45 | Emergency (ER) | payer MEDICARE, MEDICAID ==
[2017-10-19 16:04] VITALS: TEMP 96.8
[2017-10-19] MEDS ORDERED: MAGNESIUM HYDROXIDE 30 ML UD PO ONE (16:08)
[2017-10-19] MEDS ORDERED: LUBIPROSTONE 24 MCG CAP PO ONE (16:09)
--- NOTE | 2017-10-19 16:12 | ED.PDOC ---
History of Present Illness - General Chief Complaint: GI Problem Stated Complaint: constipation Time Seen by Provider: 10/19/17 16:08 Source: patient Exam Limitations: clinical condition - History of Present Illness Initial Comments: The patient's a 57-year-old female presenting to the emergency room secondary to constipation. She reports it's been 4-6 days since her last bowel movement. She does have chronic constipation problems. She takes Dulcolax fairly frequently. Her last dose of milk of magnesia was 2 weeks ago. She has taken MiraLAX before but has not taken any recently. She has been trying to increase her water intake over the last 24 hours. she has been passing gas. She is not throwing up. No evidence of any bowel obstruction clinically. Timing/Duration: unsure Severity: moderate Improving Factors: nothing Worsening Factors: nothing Associated Symptoms: denies symptoms Allergies/Adverse Reactions: Allergies Morphine Allergy (Verified 07/29/17 23:32) Home Medications: Ambulatory Orders Amlodipine Besylate 5 mg PO DAILY 07/30/17 Atorvastatin Calcium [Lipitor] 80 mg PO DAILY 07/30/17 Clonidine HCl 0.1 mg PO TID 07/30/17 Clopidogrel Bisulfate 75 mg PO DAILY 07/30/17 Furosemide [Lasix] 40 mg PO DAILY 07/30/17 Gabapentin [Neurontin] 300 mg PO TID 07/30/17 Pantoprazole Sodium 40 mg PO DAILY 07/30/17 Paroxetine HCl 10 mg PO DAILY 07/30/17 Potassium Chloride [Potassium Chloride ER] 20 meq PO BID 07/30/17 Albuterol Sulfate Nebs [Proventil Nebs] 2.5 mg NEB PRN PRN vial 08/04/17 Aspirin [Baby Aspirin] 81 mg PO DAILY chwtab 08/04/17 Carvedilol [Coreg] 3.125 mg PO BID tab 08/04/17 Insulin Detemir [Levemir Pen] 20 units SUBCU DAILY pen 08/04/17 Insulin Lispro [Humalog] 0 units SUBCU ACHS pen 08/04/17 Isosorbide Mononitrate [Imdur] 30 mg PO DAILY tab 08/04/17 Levalbuterol Nebs [Xopenex NEBS] 1.25 mg INH RTTID vial 08/04/17 Magnesium Hydroxide [Milk Of Magnesia] 30 ml PO DAILY PRN ud 08/04/17 Tramadol HCl 50 mg PO Q6H PRN #60 tab 08/04/17 Review of Systems - Review of Systems Constitutional: States: no symptoms reported EENTM: States: no symptoms reported Respiratory: States: no symptoms reported Cardiology: States: no symptoms reported Gastrointestinal/Abdominal: States: abdominal pain - some cramping, constipation Genitourinary: States: no symptoms reported Musculoskeletal: States: no symptoms reported Skin: States: no symptoms reported Neurological: States: no symptoms reported Endocrine: States: no symptoms reported All other Systems: No Change from Baseline Past Medical History (General) - Patient Medical History Hx Seizures: No Hx Stroke: No Hx Dementia: No Hx Asthma: No Hx of COPD: Yes Hx Cardiac Disorders: Yes - MS Hx Congestive Heart Failure: Yes Hx Pacemaker: No Hx Hypertension: Yes Hx Thyroid Disease: Yes Hx Diabetes: Yes Hx Gastroesophageal Reflux: Yes Hx Renal Disease: No Hx Cancer: No Hx of HIV: No Hx Hepatitis C: No Hx MRSA: Yes MRSA Source:: Wound Surgical History: cholecystectomy, coronary bypass surgery - Vaccination History Hx Tetanus, Diphtheria Vaccination: Yes Hx Influenza Vaccination: Yes Hx Pneumococcal Vaccination: Yes - Social History Hx Tobacco Use: Yes Hx Alcohol Use: No Hx Substance Use: No Hx Substance Use Treatment: No Hx Depression: No Hx Physical Abuse: No Hx Emotional Abuse: No Hx Suspected Abuse: No - Female History Patient is a Female of Child Bearing Age (10 -59 yrs old): No Patient : No Family Medical History - Family History Mother Living Status: Hx Family Asthma: No Hx Family Congestive Heart Failure: No Hx Family Hypertension: No Hx Family Stroke: No Hx Cardiac Disease: Yes Hx Family Diabetes: Yes Hx Family Cancer: Yes Physical Exam - Physical Exam General Appearance: Alert, Comfortable, No apparent distress Eye Exam: bilateral normal - pupils are pinpoint bilaterally Ears, Nose, Throat: hearing grossly normal, normal ENT inspection, normal pharynx Neck: non-tender, supple Respiratory: no respiratory distress, no accessory muscle use Cardiovascular/Chest: normal peripheral pulses, no edema Gastrointestinal/Abdominal: non tender, soft, other - here does seem to be a fair amount of palpable stool. Rectal Exam: deferred Back Exam: no CVA tenderness, no vertebral tenderness Extremity: normal range of motion, non-tender, normal inspection, no pedal edema , normal capillary refill Neurologic: insulator tester II-XII nml as tested, alert, normal mood/affect - ., oriented x 3 Skin Exam: normal color Comments: Vital Signs - 24 hr 10/19/17 15:58 Temperature 96.8 F L Pulse Rate [ 86 MONITOR] Respiratory 20 Rate Blood Pressure 164/97 [LA] O2 Sat by Pulse 98 Oximetry Progress - Progress Progress: 10/19/17 16:12 the patient's a 57-year-old female presenting with acute on chronic constipation issues. The patient is being given a dose of milk of magnesia and amitiza here today. She does need to increase her fluid intake. She should also pickers material handlers some castor oil and take one dose today and one dose tomorrow. She needs to increase her ambulation to help stimulate her bowels. Additionally she should start taking MiraLAX and FiberCon daily. ER warnings were given. She needs to follow up with her primary care doctor in 2-3 days. Departure - Departure Clinical Impression: Constipation Qualifiers: Constipation type: unspecified constipation type Qualified Code(s): K59.00 - Constipation, unspecified Disposition: Discharge to Home or Self Care Condition: Fair Departure Forms: ED Discharge - Pt. Copy, Patient Portal Self Enrollment Instructions: DI for Constipation Diet: regular diet - high-fiber Activity: increase activity as tolerated Referrals: NORMA MINA [Primary Care Provider] - 1-5 Days Home Medications: Ambulatory Orders Amlodipine Besylate 5 mg PO DAILY 07/30/17 Atorvastatin Calcium [Lipitor] 80 mg PO DAILY 07/30/17 Clonidine HCl 0.1 mg PO TID 07/30/17 Clopidogrel Bisulfate 75 mg PO DAILY 07/30/17 Furosemide [Lasix] 40 mg PO DAILY 07/30/17 Gabapentin [Neurontin] 300 mg PO TID 07/30/17 Pantoprazole Sodium 40 mg PO DAILY 07/30/17 Paroxetine HCl 10 mg PO DAILY 07/30/17 Potassium Chloride [Potassium Chloride ER] 20 meq PO BID 07/30/17 Albuterol Sulfate Nebs [Proventil Nebs] 2.5 mg NEB PRN PRN vial 08/04/17 Aspirin [Baby Aspirin] 81 mg PO DAILY chwtab 08/04/17 Carvedilol [Coreg] 3.125 mg PO BID tab 08/04/17 Insulin Detemir [Levemir Pen] 20 units SUBCU DAILY pen 08/04/17 Insulin Lispro [Humalog] 0 units SUBCU ACHS pen 08/04/17 Isosorbide Mononitrate [Imdur] 30 mg PO DAILY tab 08/04/17 Levalbuterol Nebs [Xopenex NEBS] 1.25 mg INH RTTID vial 08/04/17 Magnesium Hydroxide [Milk Of Magnesia] 30 ml PO DAILY PRN ud 08/04/17 Tramadol HCl 50 mg PO Q6H PRN #60 tab 08/04/17 Additional Instructions: the patient's a 57-year-old female presenting with acute on chronic constipation issues. The patient is being given a dose of milk of magnesia and amitiza here today. She does need to increase her fluid intake. She should also pickers material handlers some castor oil and take one dose today and one dose tomorrow. She needs to increase her ambulation to help stimulate her bowels. Additionally she should start taking MiraLAX and FiberCon daily. ER warnings were given. She needs to follow up with her primary care doctor in 2-3 days. holding Lasix for one or 2 days only may also help.
[2017-10-19 16:35] VITALS: BP 182/85; O2SAT 96
== END 2017-10-19 16:35 | disposition home or self-care (01) ==
LOC: ER 15:45
DX: K59.00 Constipation, unspecified (principal); I25.2 Old myocardial infarction; I11.0 Hypertensive heart disease with heart failure; I50.9 Heart failure, unspecified; E07.9 Disorder of thyroid, unspecified; E11.9 Type 2 diabetes mellitus without complications; Z79.4 Long term (current) use of insulin; Z95.1 Presence of aortocoronary bypass graft; Z79.82 Long term (current) use of aspirin; Z79.899 Other long term (current) drug therapy

== ENCOUNTER 2018-01-06 13:22 | Emergency (ER) | payer MEDICARE, MEDICAID ==
[2018-01-06] MEDS ORDERED: ONDANSETRON ODT 8 MG TAB SL ONE (13:29)
[2018-01-06 14:21] VITALS: TEMP 96.4
--- NOTE | 2018-01-06 14:46 | ED.PDOC ---
History of Present Illness - General Chief Complaint: Diabetic Complaint Stated Complaint: low blood sugar Time Seen by Provider: 01/06/18 13:25 Source: patient Exam Limitations: no limitations - History of Present Illness Initial Comments: the patient is a 57-year-old female presenting to the emergency room secondary to symptomatic hypoglycemia. The patient had been having some stomach upset this morning and at noon so she did not eat her breakfast or her lunch. She is a insulin-dependent diabetic and didn't receive these medications. Glucoses 26 upon checked by EMS. She received an amp of D50 and by the time she arrived here she is acting normally. She was diaphoretic and confused at the time. She is not now. The patient is currently feeling much better and she has eaten and drank some without any difficulty. She reports that she has been feeling normal. The patient was being treated with Bactrim for a urinary tract infection for the last 3-4 days. It is certainly not uncommon for Bactrim to irritate stomach. Timing/Duration: 1/2 hour Severity: moderate Improving Factors: nothing Worsening Factors: nothing Associated Symptoms: denies symptoms Allergies/Adverse Reactions: Allergies Morphine Allergy (Verified 07/29/17 23:32) Home Medications: Ambulatory Orders Amlodipine Besylate 5 mg PO DAILY 07/30/17 Atorvastatin Calcium [Lipitor] 80 mg PO DAILY 07/30/17 Clonidine HCl 0.1 mg PO TID 07/30/17 Clopidogrel Bisulfate 75 mg PO DAILY 07/30/17 Furosemide [Lasix] 40 mg PO DAILY 07/30/17 Gabapentin [Neurontin] 300 mg PO TID 07/30/17 Pantoprazole Sodium 40 mg PO DAILY 07/30/17 Paroxetine HCl 10 mg PO DAILY 07/30/17 Potassium Chloride [Potassium Chloride ER] 20 meq PO BID 07/30/17 Albuterol Sulfate Nebs [Proventil Nebs] 2.5 mg NEB PRN PRN vial 08/04/17 Aspirin [Baby Aspirin] 81 mg PO DAILY chwtab 08/04/17 Carvedilol [Coreg] 3.125 mg PO BID tab 08/04/17 Insulin Detemir [Levemir Pen] 20 units SUBCU DAILY pen 08/04/17 Insulin Lispro [Humalog] 0 units SUBCU ACHS pen 08/04/17 Isosorbide Mononitrate [Imdur] 30 mg PO DAILY tab 08/04/17 Levalbuterol Nebs [Xopenex NEBS] 1.25 mg INH RTTID vial 08/04/17 Magnesium Hydroxide [Milk Of Magnesia] 30 ml PO DAILY PRN ud 08/04/17 Tramadol HCl 50 mg PO Q6H PRN #60 tab 08/04/17 Famotidine 20 mg PO BID #60 tab 01/06/18 Review of Systems - Review of Systems Constitutional: States: no symptoms reported EENTM: States: no symptoms reported Respiratory: States: no symptoms reported Cardiology: States: no symptoms reported Gastrointestinal/Abdominal: States: nausea Genitourinary: States: see HPI Musculoskeletal: States: no symptoms reported Skin: States: no symptoms reported Neurological: States: see HPI Endocrine: States: excessive sweating All other Systems: No Change from Baseline Past Medical History (General) - Patient Medical History Hx Seizures: No Hx Stroke: No Hx Dementia: No Hx Asthma: No Hx of COPD: Yes Hx Cardiac Disorders: Yes - [place] Hx Congestive Heart Failure: Yes Hx Pacemaker: No Hx Hypertension: Yes Hx Thyroid Disease: Yes Hx Diabetes: Yes Hx Gastroesophageal Reflux: Yes Hx Renal Disease: No Hx Cancer: No Hx of HIV: No Hx Hepatitis C: No Hx MRSA: Yes MRSA Source:: Wound - Vaccination History Hx Tetanus, Diphtheria Vaccination: Yes Hx Influenza Vaccination: Yes - 06/14/17 Hx Pneumococcal Vaccination: Yes - // - Social History Hx Tobacco Use: Yes Hx Alcohol Use: No Hx Substance Use: No Hx Substance Use Treatment: No Hx Depression: No Hx Physical Abuse: No Hx Emotional Abuse: No Hx Suspected Abuse: No - Activities of Daily Living Intermediate/Assisted Living (if applicable):: [place] [facility] - Female History Patient : No Family Medical History - Family History Mother Living Status: Hx Family Asthma: No Hx Family Congestive Heart Failure: No Hx Family Hypertension: No Hx Family Stroke: No Hx Cardiac Disease: Yes Hx Family Diabetes: Yes Hx Family Cancer: Yes Physical Exam - Physical Exam General Appearance: Alert, Comfortable, No apparent distress Eye Exam: bilateral normal Ears, Nose, Throat: hearing grossly normal, normal ENT inspection Neck: full range of motion, supple Respiratory: lungs clear, normal breath sounds, no respiratory distress, no accessory muscle use Cardiovascular/Chest: normal peripheral pulses, other - regular rate Peripheral Pulses: radial,right: 2+, radial,left: 2+, dorsalis pedis,right: 2+, dorsalis pedis,left: 2+ Gastrointestinal/Abdominal: non tender, soft Rectal Exam: deferred Back Exam: no CVA tenderness, no vertebral tenderness Extremity: non-tender, normal inspection, normal capillary refill, other - she does have +1 edema to bilateral lower extremities hich is apparently chronic 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 The patient has eaton well here. The stomach upset the patient was experiencing was most likely due to the Bactrim given for the urinary tract infection. The urine is clear here today and I would suggest discontinuing the Bactrim. The patient will be written for Pepcid twice daily for the next 2 weeks to help her upset stomach. She will also be written for Zofran for as needed use for any nausea and vomiting. She needs to keep herself well hydrated and eat her meals regularly as she is taking her insulin. ER warnings were given for any worsening. She should follow-up with her primary care doctor before the weekend. - Results/Orders Results/Orders: 01/06/18 Lunch 2000 Calorie ADA Diet Laboratory Results - last 24 hr 01/06/18 01/06/18 13:30 14:11 POC Glucose 161 H Urine Color Yellow Urine Appearance Clear Urine pH 6.0 Ur Specific [place] 1.020 Urine Protein >=300 H Urine Glucose (UA) Negative Urine Ketones Negative Urine Blood Trace-intact H Urine Nitrite Negative Urine Bilirubin Negative Urine Urobilinogen 0.2 Ur Leukocyte Esterase Negative Urine RBC 1-3 Urine WBC 0-1 Ur Epithelial Cells 1-3 Urine Bacteria Rare Departure - Departure Clinical Impression: Hypoglycemia Disposition: Discharge to Home or Self Care Condition: Fair Departure Forms: ED Discharge - Pt. Copy, Patient Portal Self Enrollment Diet: diabetic diet Activity: increase activity as tolerated Referrals: JOO SONI [Primary Care Provider] - 1-2 Days Prescriptions: Famotidine 20 mg PO BID #60 tab Home Medications: Ambulatory Orders Amlodipine Besylate 5 mg PO DAILY 07/30/17 Atorvastatin Calcium [Lipitor] 80 mg PO DAILY 07/30/17 Clonidine HCl 0.1 mg PO TID 07/30/17 Clopidogrel Bisulfate 75 mg PO DAILY 07/30/17 Furosemide [Lasix] 40 mg PO DAILY 07/30/17 Gabapentin [Neurontin] 300 mg PO TID 07/30/17 Pantoprazole Sodium 40 mg PO DAILY 07/30/17 Paroxetine HCl 10 mg PO DAILY 07/30/17 Potassium Chloride [Potassium Chloride ER] 20 meq PO BID 07/30/17 Albuterol Sulfate Nebs [Proventil Nebs] 2.5 mg NEB PRN PRN vial 08/04/17 Aspirin [Baby Aspirin] 81 mg PO DAILY chwtab 08/04/17 Carvedilol [Coreg] 3.125 mg PO BID tab 08/04/17 Insulin Detemir [Levemir Pen] 20 units SUBCU DAILY pen 08/04/17 Insulin Lispro [Humalog] 0 units SUBCU ACHS pen 08/04/17 Isosorbide Mononitrate [Imdur] 30 mg PO DAILY tab 08/04/17 Levalbuterol Nebs [Xopenex NEBS] 1.25 mg INH RTTID vial 08/04/17 Magnesium Hydroxide [Milk Of Magnesia] 30 ml PO DAILY PRN ud 08/04/17 Tramadol HCl 50 mg PO Q6H PRN #60 tab 08/04/17 Famotidine 20 mg PO BID #60 tab 01/06/18 Additional Instructions: the patient a 57-year-old female presenting to the emergency room after a episode of hypoglycemia likely related to not eating breakfast or lunch today. The patient has eaton well here. The stomach upset the patient was experiencing was most likely due to the Bactrim given for the urinary tract infection. The urine is clear here today and I would suggest discontinuing the Bactrim. The patient will be written for Pepcid twice daily for the next 2 weeks to help her upset stomach. She will also be written for Zofran for as needed use for any nausea and vomiting. She needs to keep herself well hydrated and eat her meals regularly as she is taking her insulin. ER warnings were given for any worsening. She should follow-up with her primary care doctor before the weekend.
[2018-01-06 16:37] VITALS: BP 175/84; O2SAT 95
== END 2018-01-06 17:29 ==
LOC: ER 13:22
DX: E11.649 Type 2 diabetes mellitus with hypoglycemia without coma (principal); J44.9 Chronic obstructive pulmonary disease, unspecified; I25.2 Old myocardial infarction; I11.0 Hypertensive heart disease with heart failure; I50.9 Heart failure, unspecified; E07.9 Disorder of thyroid, unspecified; K21.9 Gastro-esophageal reflux disease without esophagitis; Z79.4 Long term (current) use of insulin; Z87.440 Personal history of urinary (tract) infections; Z79.82 Long term (current) use of aspirin

== ENCOUNTER 2018-01-25 14:23 | Inpatient (IN) | payer MEDICARE, MEDICAID ==
[2018-01-25] MEDS ORDERED: FUROSEMIDE 40 MG TAB PO ONE (14:54)
--- NOTE | 2018-01-25 15:48 | RAD ---
EXAM DESCRIPTION: Chest,2 Views CLINICAL HISTORY: 57 years Female, suspected chf exacerbation COMPARISON: 03 August 2017, 18 Jan 2018 TECHNIQUE: PA/lateral FINDINGS: Patient is poststernotomy. Cardiomegaly is evident. Pulmonary vascular congestion is observed without overt pulmonary edema. There is been an interval improvement when compared to the previous exam of 18 Jan 2018. No pleural fluid is seen. Degenerative changes are seen in the thoracic spine. IMPRESSION: Cardiomegaly and pulmonary vascular congestion are observed without overt pulmonary edema. There is been an interval improvement since the previous exam. Electronically signed by: Sundeep Vang MD 01/25/2018 3:46 PM CDT
--- NOTE | 2018-01-25 17:17 | ED.PDOC ---
History of Present Illness - General Chief Complaint: Respiratory Problem Stated Complaint: shortness of breath, edema Time Seen by Provider: 01/25/18 14:29 Source: patient, family Exam Limitations: no limitations - History of Present Illness Initial Comments: The patient is a 57-year-old female presenting to the emergency room secondary to increasing swelling in her legs and her abdomen as well as increasing shortness of breath with activity and lying back. She does have a significant history of COPD. The patient does take diuretics but has noticed over the last week that her diuretics are essentially doing nothing for her. She reports that she is about 15-20 pounds over her baseline weight. She does currently reside in a residential. She has not been able to increase her dosages sufficiently to control the weight gain. The patient has not had any chest pain or palpitations. No syncope or near syncope. She has not had any fever that she is known of. No cough. No urinary symptoms. Timing/Duration: unsure Severity: moderate Improving Factors: nothing Worsening Factors: nothing Associated Symptoms: denies symptoms Allergies/Adverse Reactions: Allergies Morphine Allergy (Verified 07/29/17 23:32) Home Medications: Ambulatory Orders Amlodipine Besylate 5 mg PO DAILY 07/30/17 Atorvastatin Calcium [Lipitor] 80 mg PO DAILY 07/30/17 Clonidine HCl 0.1 mg PO TID 07/30/17 Clopidogrel Bisulfate 75 mg PO DAILY 07/30/17 Furosemide [Lasix] 40 mg PO DAILY 07/30/17 Gabapentin [Neurontin] 300 mg PO TID 07/30/17 Pantoprazole Sodium 40 mg PO DAILY 07/30/17 Paroxetine HCl 10 mg PO DAILY 07/30/17 Potassium Chloride [Potassium Chloride ER] 20 meq PO BID 07/30/17 Albuterol Sulfate Nebs [Proventil Nebs] 2.5 mg NEB PRN PRN vial 08/04/17 Aspirin [Baby Aspirin] 81 mg PO DAILY chwtab 08/04/17 Carvedilol [Coreg] 3.125 mg PO BID tab 08/04/17 Insulin Detemir [Levemir Pen] 20 units SUBCU DAILY pen 08/04/17 Insulin Lispro [Humalog] 0 units SUBCU ACHS pen 08/04/17 Isosorbide Mononitrate [Imdur] 30 mg PO DAILY tab 08/04/17 Levalbuterol Nebs [Xopenex NEBS] 1.25 mg INH RTTID vial 08/04/17 Magnesium Hydroxide [Milk Of Magnesia] 30 ml PO DAILY PRN ud 08/04/17 Tramadol HCl 50 mg PO Q6H PRN #60 tab 08/04/17 Famotidine 20 mg PO BID #60 tab 01/06/18 Ondansetron [Zofran Odt] 4 mg PO Q4H PRN #10 tab 01/06/18 Review of Systems - Review of Systems Constitutional: States: malaise EENTM: States: no symptoms reported Respiratory: States: short of breath Cardiology: States: edema Gastrointestinal/Abdominal: States: no symptoms reported Genitourinary: States: no symptoms reported Musculoskeletal: States: no symptoms reported Skin: States: no symptoms reported Neurological: States: no symptoms reported Endocrine: States: unexplained weight gain All other Systems: No Change from Baseline Past Medical History (General) - Patient Medical History Hx Seizures: No Hx Stroke: No Hx Dementia: No Hx Asthma: No Hx of COPD: Yes Hx Cardiac Disorders: Yes - [place] Hx Congestive Heart Failure: Yes Hx Pacemaker: No Hx Hypertension: Yes Hx Thyroid Disease: Yes Hx Diabetes: Yes Hx Gastroesophageal Reflux: Yes Hx Renal Disease: No Hx Cancer: No Hx of HIV: No Hx Hepatitis C: No Hx MRSA: Yes MRSA Source:: Wound - Vaccination History Hx Tetanus, Diphtheria Vaccination: Yes Hx Influenza Vaccination: Yes - 06/14/17 Hx Pneumococcal Vaccination: Yes - // - Social History Hx Tobacco Use: No Hx Alcohol Use: No Hx Substance Use: No Hx Substance Use Treatment: No Hx Depression: No Hx Physical Abuse: No Hx Emotional Abuse: No Hx Suspected Abuse: No - Female History Patient : No Family Medical History - Family History Mother Living Status: Hx Family Asthma: No Hx Family Congestive Heart Failure: No Hx Family Hypertension: No Hx Family Stroke: No Hx Cardiac Disease: Yes Hx Family Diabetes: Yes Hx Family Cancer: Yes Physical Exam - Physical Exam General Appearance: Alert, No apparent distress Eye Exam: bilateral normal Ears, Nose, Throat: hearing grossly normal, normal ENT inspection, normal pharynx Neck: full range of motion, supple Respiratory: normal breath sounds, no respiratory distress, no accessory muscle use, other - mild bibasilar Rales Cardiovascular/Chest: normal peripheral pulses, regular rate, rhythm Peripheral Pulses: radial,right: 2+, radial,left: 2+, dorsalis pedis,right: 2+, dorsalis pedis,left: 2+ Gastrointestinal/Abdominal: non tender, soft Rectal Exam: deferred Back Exam: normal inspection, no CVA tenderness Extremity: non-tender, normal capillary refill, pedal edema - +3 edema to bilateral lower extremities. Mild ascites. 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 She does have a positive troponin however she always has a positive troponin. She is not having any chest pain and her EKG looks consistent with her baseline EKG. It appears that the patient 's oral diuretics are not working for her at this time likely due to ascites and bowel swelling. The patient is being dosed with IV Lasix. She will need IV diuretics for a couple of days in order to reduce the swelling so that her diuretics can work. She does need continued monitoring. Admit for continued workup. Continue oxygen. Continue care for chronic medical problems otherwise. of note upon arrival patient has a temperature of 100.1. I do not see any evidence of any infection. This will need to be monitored periodically to make sure it is not worsening. So far no blood cultures have been done. This may been a spurious elevation but does need to be followed. 01/25/18 17:21 - Results/Orders Results/Orders: 01/25/18 14:45 EKG STAT normal sinus rhythm. Right bundle branch block. Old septal VT likely. Q waves in lead 3. Diffuse inverted T waves. This EKG is consistent with her EKG from July 2017. Chest x-ray shows cardiomegaly and pulmonary congestion but noobvious pulmonary edema. Effusions are not noted. 01/25/18 14:54 Telemetry .CONTINUOUS normal sinus rhythm Laboratory Results - last 24 hr 01/25/18 01/25/18 01/25/18 15:09 15:09 15:09 WBC 6.2 RBC 3.51 L Hgb 9.2 L Hct 28.6 L MCV 81.6 MCH 26.2 L MCHC 32.2 L RDW 18.5 H Plt Count 244 MPV 7.4 Absolute Neuts (auto) 4.90 Absolute Lymphs (auto) 0.70 L Absolute Monos (auto) 0.40 Absolute Eos (auto) 0.20 Absolute Basos (auto) 0.00 Neutrophils % 78.5 H Lymphocytes % 11.5 L Monocytes % 6.3 Eosinophils % 3.0 Basophils % 0.7 PT 13.6 H INR 1.170 PTT (SP) 30.5 Sodium Potassium Chloride Carbon Dioxide Anion Gap BUN Creatinine BUN/Creatinine Ratio Random Glucose Serum Osmolality Calcium Magnesium 1.9 Total Bilirubin AST ALT Alkaline Phosphatase Creatine Kinase 77 CK-MB (CK-2) 3.0 CK-MB (CK-2) % Not Reportable Troponin I 0.13 H* B-Natriuretic Peptide 2630.0 H* Serum Total Protein Albumin Globulin Albumin/Globulin Ratio Urine Color Urine Appearance Urine pH Ur Specific [place] Urine Protein Urine Glucose (UA) Urine Ketones Urine Blood Urine Nitrite Urine Bilirubin Urine Urobilinogen Ur Leukocyte Esterase Urine RBC Urine WBC Ur Epithelial Cells Urine Bacteria 01/25/18 01/25/18 15:09 15:25 WBC RBC Hgb Hct MCV MCH MCHC RDW Plt Count MPV Absolute Neuts (auto) Absolute Lymphs (auto) Absolute Monos (auto) Absolute Eos (auto) Absolute Basos (auto) Neutrophils % Lymphocytes % Monocytes % Eosinophils % Basophils % PT INR PTT (SP) Sodium 139 Potassium 3.7 Chloride 104 Carbon Dioxide 26 Anion Gap 12.7 BUN 13 Creatinine 0.86 BUN/Creatinine Ratio 15.1 Random Glucose 94 Serum Osmolality 277.4 Calcium 8.4 Magnesium Total Bilirubin 0.4 AST 15 ALT < 8 L Alkaline Phosphatase 94 Creatine Kinase CK-MB (CK-2) CK-MB (CK-2) % Troponin I B-Natriuretic Peptide Serum Total Protein 7.0 Albumin 2.9 L Globulin 4.1 H Albumin/Globulin Ratio 0.7 L Urine Color Yellow Urine Appearance Clear Urine pH 7.0 Ur Specific [place] 1.020 Urine Protein 100 H Urine Glucose (UA) Negative Urine Ketones Negative Urine Blood Trace-intact H Urine Nitrite Negative Urine Bilirubin Negative Urine Urobilinogen 1.0 Ur Leukocyte Esterase Negative Urine RBC 0-1 Urine WBC 0 Ur Epithelial Cells 0-1 Urine Bacteria 0 Departure - Departure Clinical Impression: Acute on chronic diastolic CHF (congestive heart failure) Disposition: Admit Patient Referrals: JOO SONI [Primary Care Provider] - 1-2 Weeks Home Medications: Ambulatory Orders Amlodipine Besylate 5 mg PO DAILY 07/30/17 Atorvastatin Calcium [Lipitor] 80 mg PO DAILY 07/30/17 Clonidine HCl 0.1 mg PO TID 07/30/17 Clopidogrel Bisulfate 75 mg PO DAILY 07/30/17 Furosemide [Lasix] 40 mg PO DAILY 07/30/17 Gabapentin [Neurontin] 300 mg PO TID 07/30/17 Pantoprazole Sodium 40 mg PO DAILY 07/30/17 Paroxetine HCl 10 mg PO DAILY 07/30/17 Potassium Chloride [Potassium Chloride ER] 20 meq PO BID 07/30/17 Albuterol Sulfate Nebs [Proventil Nebs] 2.5 mg NEB PRN PRN vial 08/04/17 Aspirin [Baby Aspirin] 81 mg PO DAILY chwtab 08/04/17 Carvedilol [Coreg] 3.125 mg PO BID tab 08/04/17 Insulin Detemir [Levemir Pen] 20 units SUBCU DAILY pen 08/04/17 Insulin Lispro [Humalog] 0 units SUBCU ACHS pen 08/04/17 Isosorbide Mononitrate [Imdur] 30 mg PO DAILY tab 08/04/17 Levalbuterol Nebs [Xopenex NEBS] 1.25 mg INH RTTID vial 08/04/17 Magnesium Hydroxide [Milk Of Magnesia] 30 ml PO DAILY PRN ud 08/04/17 Tramadol HCl 50 mg PO Q6H PRN #60 tab 08/04/17 Famotidine 20 mg PO BID #60 tab 01/06/18 Ondansetron [Zofran Odt] 4 mg PO Q4H PRN #10 tab 01/06/18 Decision To Admit - Decistion To Admit Decision to Admit Reason: Medical Nature Decision to Admit Date: 01/25/18 Decision to Admit Time: 17:21
--- NOTE | 2018-01-25 18:07 | HP ---
SUPERVISING PHYSICIAN: Hay Parker MD CHIEF COMPLAINT: Edema with shortness of breath. HISTORY OF PRESENT ILLNESS: Ms. Saravia is a 57-year-old, female patient who resides at [facility] who presented to the Emergency Room today secondary to worsening edema to her lower extremities, abdomen as well as increasing shortness of breath with any activity or lying back. She has a history of chronic obstructive pulmonary disease and congestive heart failure and takes diuretics. She notes she has had approximately a 15 to 20 pound weight gain over baseline status within the recent weeks and has attempted to take an extra Lasix as needed for additional swelling, but was not allowed to take Lasix as [facility]. She denies any chest pain, palpitations or syncope. Her laboratory studies showed an elevated BNP of 2630 with troponin 0.13 but normal CK and CK-MB. Chest x-ray, two-view, per radiologic interpretation showed cardiomegaly with pulmonary vascular congestion without any overt pulmonary edema. In the Emergency Room, vital signs were stable. She did have a low grade temperature of 100.1. White count was normal at 6.2 and no left shift. Urinalysis showed just a trace of blood with 100 protein, otherwise within normal limits. She notes she has had some nasal congestion and runny nose over the last week, but denies any significant cough. Given her history, current BNP and symptomatology, she was given a dose of Lasix that included 80 mg initially p.o. in the Emergency Room without any significant response to the Lasix. The patient is now going to be admitted to the Medical/Surgical Floor for acute exacerbation of congestive heart failure. She was admitted in stable condition. PAST MEDICAL HISTORY: 1. Congestive heart failure with no current echocardiogram for review. 2. Diabetes mellitus on insulin. 3. History of coronary artery disease, uncertain etiology with no echocardiogram and is O2 dependent. 4. Chronic obstructive pulmonary disease in a chronic smoker, O2 dependent. PAST SURGICAL HISTORY: 1. Recent right hip fracture repair in November of 2017 status post fall. 2. Cholecystectomy. 3. Three C-sections. 4. Coronary artery bypass graft in 2014 in [place]. CURRENT MEDICATIONS: 1. Amlodipine 5 mg daily. 2. Famotidine 20 mg b.i.d. 3. Plavix 75 mg daily. 4. Clonidine 0.1 mg t.i.d. 5. Imdur 60 mg daily. 6. Lasix 40 mg daily. 7. Lisinopril 40 mg daily. 8. Levemir 20 units daily. 9. Milk of Magnesia 30 mg daily as needed. 10. Amiodarone 200 mg daily. 11. Tylenol No. 3, 1 b.i.d. as needed for pain. 12. Coreg 6.25 mg b.i.d. 13. Lipitor 20 mg daily. 14. Paroxetine 10 mg daily. 15. Insulin Regular sliding scale. 16. Tylenol 1000 mg q.8h. as needed. 17. Ventolin inhaler 90 mcg inhaled q.6h. as needed. 18. Potassium chloride extended release 20 mEq b.i.d. 19. Zofran 10 mg daily. 20. [place] 7.5/325 2 tablets daily as needed. 21. Nitrostat 1 sublingual q.5 minutes for chest pain. ALLERGIES: MORPHINE. FAMILY HISTORY: Positive for coronary artery disease, diabetes mellitus, cancers. SOCIAL HISTORY: The patient is a resident of [facility]. She is a retired cook. She does currently smoke approximately one pack of cigarettes a week. She denies any alcohol or illicit drug use. REVIEW OF SYSTEMS: CONSTITUTIONAL: Reported 15 to 20 pound weight gain over baseline weight over the last several weeks. Denies any fevers, chills, but does have general malaise. HEENT: Notes some nasal congestion and nasal drip, but no earaches, sore throats. RESPIRATORY: As per history of present illness, shortness of breath including exertional and orthopnea. Denies cough or wheezing. CARDIOVASCULAR: No reported chest pain, but does have 3+ edema which is chronic. GASTROINTESTINAL: No reported abdominal pain. Does have chronic constipation, but no diarrhea. MUSCULOSKELETAL: Recent hip fracture with repair in November of 2017 on the left. NEUROLOGIC: Denies ataxia, seizures, headaches, vision changes or syncopal episodes. PHYSICAL EXAMINATION: VITAL SIGNS: Temperature initially 100.1 in the Emergency Room. Pulse 74. Blood pressure 172/74. Oxygen saturation 96 on room air. Weight 89.6 kg which is up from previous admission in July of 2017 of 75.8 kg. GENERAL: The patient is very unkept, appears to be in no acute distress . She is alert and oriented times 3. HEENT: Tympanic membranes clear bilaterally. Oropharynx is pink, moist without any lesions. NECK: Supple, nontender with full range of motion. RESPIRATORY: Lung sounds diminished towards the bases with some bibasilar rales and faint rhonchi, but no wheezing noted. CARDIOVASCULAR: Regular rate and rhythm without any appreciable murmurs, gallops, or rubs. ABDOMEN: Obese, but soft, nontender, no rebound tenderness. Positive bowel sounds. EXTREMITIES: There is no cyanosis, clubbing, but there is 3+ pedal edema bilaterally with some mild ascites noted as well. NEUROLOGIC: The patient is alert and oriented times three. Cranial nerves II- XII are grossly intact. Facial features are symmetrical. Extraocular movements are within normal limits. There is no nystagmus noted. LABORATORY: CBC showed white count 6,200, hemoglobin 9.2, hematocrit 28.6, platelet count 244,000. RBC indices indicated a normocytic, but hypochromic presentation. There was no left shift noted. Coagulation studies showed just a slightly elevated PT of 13.6 with normal PTT. Chemistries showed normal electrolytes with potassium 3.7, sodium 139, osmolality 277, glucose 94, calcium 8.4, magnesium 1.9. Liver functions all within normal limits. Initial troponin 0.13 with elevated BNP of 2630. Urinalysis on clean catch specimen showed 100 protein, trace blood, otherwise within normal limits. MICROBIOLOGY: RADIOLOGY: Chest x-ray, two-view, per radiologic interpretation showed cardiomegaly with pulmonary vascular congestion without any overt pulse edema. ASSESSMENT: 1. Acute on chronic congestive heart failure, likely diastolic etiology with an acute exacerbation as noted with an elevated BNP, worsening pedal edema, acute weight gain and vascular congestion on radiographic studies. Also with elevated troponins, likely from exacerbation without any acute EKG changes compared to previous EKGs and no reported chest pains. 2. Chronic obstructive pulmonary disease without any notable exacerbation. 3. Febrile illness, uncertain etiology with no obvious source of infection, possible questionable viral upper respiratory versus seasonal allergies. 4. Diabetes mellitus on insulin. 5. History of coronary artery disease. 6. Chronic tobacco abuse, encouraged to stop smoking. 7. Obesity as noted by body mass index of 33.7. PLAN: The patient is going to be admitted to the Medical/Surgical Floor for treatment of her acute exacerbation of congestive heart failure and close cardiac monitoring. She was given Lasix initially in the Emergency Room 80 mg p.o. I will follow this up with 40 mg IV tonight and placement of a Tidwell catheter to closely monitor I&Os. I also gave her 2.5 mg of Zaroxolyn in addition to the Lasix. We will continue to followup in the morning with Lasix 40 mg IV b.i.d. We will repeat laboratory studies in the morning. We will resume her home medications once those have been updated and verified. She will need an echocardiogram if we cannot find a current one on this admission for continued followup as there was no available echocardiogram report at time of admission. We will plan to repeat her cardiac enzymes q.6h. and if those continue to show a significant elevation, certainly we will contact cardiology for consultation. The patient is again encouraged to stop smoking. We will plan to monitor her I&Os closely with Tidwell catheter as well as daily weights and put her on a fluid restriction of 1500 mL in a 24 hour period. We will anticipate her length of stay to be at least 2 to 3 days. Until clinically stable, we will continue to monitor the patient closely and treat appropriately. #[id number] [facility]
[2018-01-25] MEDS ORDERED: SODIUM CHLORIDE 0.9% (FLUSH) 10 ML SYG IV PRN (19:20)
[2018-01-25] MEDS ORDERED: ONDANSETRON INJ 4 MG/2 ML VIAL IV PRN (19:20)
[2018-01-25] MEDS ORDERED: DEXTROSE 50% 25 GM/50 ML SYG IV PRN (19:20)
[2018-01-25] MEDS ORDERED: GLUCAGON INJ 1 MG VIAL SUBCU PRN (19:20)
[2018-01-25] MEDS ORDERED: ACETAMINOPHEN 325 MG TAB PO PRN (19:20)
[2018-01-25] MEDS ORDERED: IV SET AND CAP CHANGE INJ INJ SCH (19:30)
[2018-01-25] MEDS ORDERED: NITROGLYCERIN 0.4 MG/HR PATCH TOP SCH (19:30)
[2018-01-25] MEDS ORDERED: metOLazone 2.5 MG TAB PO ONE (20:30)
[2018-01-25] MEDS ORDERED: ENOXAPARIN SODIUM 80 MG/0.8 ML SYG SUBCU ONE (20:38)
[2018-01-25] MEDS: SODIUM CHLORIDE 0.9% (FLUSH) 10 ML SYG IV SCH (21:14)
[2018-01-25] MEDS: INSULIN LISPRO 100 UNITS/ML PEN SUBCU SCH (21:16)
[2018-01-25] MEDS ORDERED: FUROSEMIDE INJ 100 MG/10 ML VIAL IV ONE (21:20)
[2018-01-25] MEDS ORDERED: ACETAMINOPHEN W/COD #3 TAB 1 EA TAB PO PRN (21:41)
--- NOTE | 2018-01-25 21:50 | PCM.CORE ---
Physician DVT/VTE - Nurse DVT Assessment & Total Each Risk Factor Represents 3 Points: Medical PT with Hx of KS, CHF, Severe infection/sepsis Each Risk Factor Represents 1 Point: Age 41-60, Medical PT at Bed Rest Each Risk Factor is 1 Point: Obesity (BMI >25) DVT Assessment Score: 6 - 5 or more Very High Risk Treatments: Early Ambulation *, Sequential Compression Device Pharmacological: Enoxaparin 40mg SQ Daily
[2018-01-25] MEDS ORDERED: ENOXAPARIN SODIUM 40 MG/0.4 ML SYG SUBCU SCH (22:00)
[2018-01-25] MEDS ORDERED: NITROGLYCERIN 0.4 MG 25 EA TAB SL SCH (22:00)
[2018-01-25] MEDS ORDERED: POLYETHYLENE GLYCOL 3350 17 GM PCKT PO ONE (22:07)
[2018-01-25] MEDS ORDERED: BISACODYL TAB 5 MG TAB PO ONE (22:08)
[2018-01-25] MEDS: MAGNESIUM HYDROXIDE 30 ML UD PO SCH (22:42)
--- NOTE | 2018-01-26 07:05 | RAD ---
EXAM DESCRIPTION: Chest,2 Views CLINICAL HISTORY: CHF COMPARISON: 01/25/2018 FINDINGS: Frontal and lateral views of the chest. Cardiomegaly. Prior median sternotomy. Coronary artery stents. Leads overlie the chest. Pulmonary vascular congestion. No pneumothorax or pleural fusion. No acute pneumonic process identified. Osteopenia. No acute osseous abnormalities. Upper abdominal soft tissues are unremarkable. IMPRESSION: 1. No significant interval change with persistent cardiomegaly and pulmonary vascular congestion. Electronically signed by: Umair Gonzalez 01/26/2018 7:04 AM CDT
[2018-01-26] MEDS: INSULIN LISPRO 100 UNITS/ML PEN SUBCU SCH ×4 (07:43→21:22)
[2018-01-26] MEDS: FUROSEMIDE INJ 40 MG/4 ML VIAL IV SCH ×2 (08:21→17:08)
[2018-01-26] MEDS: SODIUM CHLORIDE 0.9% (FLUSH) 10 ML SYG IV SCH ×2 (08:21→21:22)
[2018-01-26] MEDS: ISOSORBIDE MONONITRATE (IMDUR) 30 MG TAB PO SCH (08:22)
[2018-01-26] MEDS: ENOXAPARIN SODIUM 80 MG/0.8 ML SYG SUBCU SCH ×2 (08:22→21:22)
[2018-01-26] MEDS: amLODIPine BESYLATE 5 MG TAB PO SCH (08:22)
[2018-01-26] MEDS: AMIODARONE HCL 200 MG TAB PO SCH (08:22)
[2018-01-26] MEDS: PARoxetine HCL 20 MG TAB PO SCH (08:22)
[2018-01-26] MEDS: POTASSIUM CHLORIDE 20 MEQ TAB PO SCH ×2 (08:23→17:08)
[2018-01-26] MEDS: REMOVE OLD PATCH TOP SCH (08:23)
[2018-01-26] MEDS: LISINOPRIL 10 MG TAB PO SCH (08:23)
[2018-01-26] MEDS: FAMOTIDINE 20 MG TAB PO SCH ×2 (08:23→17:08)
[2018-01-26] MEDS: CLOPIDOGREL 75 MG TAB PO SCH (08:23)
[2018-01-26] MEDS: POLYETHYLENE GLYCOL 3350 17 GM PCKT PO SCH (08:26)
[2018-01-26] MEDS: BISACODYL TAB 5 MG TAB PO SCH (08:26)
[2018-01-26] MEDS: INSULIN DETEMIR 100 UNITS/ML PEN SUBCU SCH (09:07)
[2018-01-26] MEDS: NITROGLYCERIN 0.4 MG/HR PATCH TOP SCH (21:21)
[2018-01-26] MEDS: ATORVASTATIN 20 MG TAB PO SCH (21:21)
--- NOTE | 2018-01-26 21:30 | PN ---
DATE: 01/26/18 SUPERVISING PHYSICIAN: Hay Parker M.D. SUBJECTIVE: The patient continues to show good response to diuresis. She reports that she feels much less short of breath. She did have 1 episode of nausea this morning which she says happens to her sometimes after breakfast. She was seen in consultation today with Dr. Rangel. She has had no chest pains and she has been afebrile. The patient was reporting she had not had a bowel movement in the last 2 weeks, but with MiraLAX, Milk of Magnesia and some stool softeners last night she had an extremely good response and feels much better. OBJECTIVE: VITAL SIGNS: Temperature 98.1, pulse 73, blood pressure 154/85, respirations 16, satting 98% on room air. I's and O's show a negative balance of 5,889 since admission. She has had several bowel movements. CHEST: Lungs today are much clearer. There are no rales or rhonchi heard, just diminished towards the bases. HEART: Regular rate and rhythm. ABDOMEN: Obese but soft, non-tender. Positive bowel sounds. EXTREMITIES: 1+ edema compared to 3+ on admission. NEUROLOGIC: She remains alert and oriented times three. LABORATORY: CBC today shows white count 5,300, hemoglobin 9, hematocrit 27.9, platelet count 238,000. Differential shows to be without a left shift. Chemistries today show a mildly low potassium at 3.4, sodium 138, BUN 13, creatinine 1.05. Blood sugars have been between 117 and 208. Calcium 8.5. Liver functions all show within normal limits. Troponins have remained at 0.13 unchanged times 3 levels, but she reports no chest pains. MICROBIOLOGY: There are no microbiology specimens. RADIOLOGY: Repeat chest x-ray today per radiology interpretation showed no significant interval changes with persistent cardiomegaly and pulmonary vascular congestion. ASSESSMENT: 1. Acute on chronic congestive heart failure with echocardiogram by Dr. Rangel showing an ejection fraction of 40% with a diastolic etiology. 2. Ischemic congestive cardiomyopathy showing improvement with diuresis with no reported chest pains. 3. Febrile illness, resolved, uncertain etiology. Not currently on antibiotics. 4. Diabetes mellitus on insulin, stable. 5. History of coronary artery disease. 6. Chronic tobacco abuse, encouraged to stop smoking. 7. Obesity as noted by body mass index of 33.7. PLAN: Will continue current plan at this point with Lasix for diuresis with 40 mg b.i.d. followed with potassium twice daily [address] Rangel' recommendations were to continue with diuresis. No new changes were recommended. No further addressing the cardiac enzymes as they were more likely a result of the excessive fluid overload with ischemic changes due to congestion. The patient has remained chest pain free. She is on a fluid restriction of 1500 mL for a 24 hour period. Anticipate hopefully discharging tomorrow and transition her back to her normal Lasix dosage. She has had a transfer of her residence from [facility] to the [facility] in [place], [place]. Apparently the family is waiting for [facility] to send final paperwork to ensure the patient at discharge can be transferred to the new nursing facility. Until discharge, will continue to monitor closely and treat appropriately. #[id number] [facility]
[2018-01-26] MEDS: MAGNESIUM HYDROXIDE 30 ML UD PO SCH (21:33)
[2018-01-26] MEDS: cloNIDine HCL 0.1 MG TAB PO SCH (22:30)
[2018-01-26] MEDS: CARVEDILOL 3.125 MG TAB PO SCH (22:30)
[2018-01-27] MEDS: FAMOTIDINE 20 MG TAB PO SCH ×2 (06:43→16:47)
--- NOTE | 2018-01-27 07:37 | RAD ---
Examination: XR CHEST 2 VIEWS dated 01/27/2018 7:00 AM CDT History: CHF Comparison: 01/26/2018 Technique: 2 views of the chest Findings: Prominence of interstitial markings bilaterally. No pneumothorax or pleural effusion. Unchanged cardiomegaly with prior median sternotomy and CABG. Impression: Stable mild pulmonary vascular congestion. Electronically signed by: Eugenio Abraham MD 01/27/2018 7:36 AM CDT
[2018-01-27] MEDS: INSULIN LISPRO 100 UNITS/ML PEN SUBCU SCH ×4 (07:43→21:34)
[2018-01-27] MEDS: POTASSIUM CHLORIDE 20 MEQ TAB PO SCH ×2 (07:53→16:47)
[2018-01-27] MEDS ORDERED: POTASSIUM CHLORIDE 20 MEQ TAB PO ONE (08:36)
[2018-01-27] MEDS: LISINOPRIL 10 MG TAB PO SCH (09:13)
[2018-01-27] MEDS: BISACODYL TAB 5 MG TAB PO SCH (09:13)
[2018-01-27] MEDS: INSULIN DETEMIR 100 UNITS/ML PEN SUBCU SCH (09:14)
[2018-01-27] MEDS: AMIODARONE HCL 200 MG TAB PO SCH (09:15)
[2018-01-27] MEDS: CLOPIDOGREL 75 MG TAB PO SCH (09:15)
[2018-01-27] MEDS: ISOSORBIDE MONONITRATE (IMDUR) 30 MG TAB PO SCH (09:15)
[2018-01-27] MEDS: PARoxetine HCL 20 MG TAB PO SCH (09:16)
[2018-01-27] MEDS: amLODIPine BESYLATE 5 MG TAB PO SCH (09:16)
[2018-01-27] MEDS: FUROSEMIDE 40 MG TAB PO SCH (09:16)
[2018-01-27] MEDS: ENOXAPARIN SODIUM 80 MG/0.8 ML SYG SUBCU SCH ×2 (09:17→20:32)
[2018-01-27] MEDS: POLYETHYLENE GLYCOL 3350 17 GM PCKT PO SCH (09:17)
[2018-01-27] MEDS: cloNIDine HCL 0.1 MG TAB PO SCH ×3 (09:20→20:33)
[2018-01-27] MEDS: CARVEDILOL 3.125 MG TAB PO SCH ×2 (09:20→20:32)
[2018-01-27] MEDS: REMOVE OLD PATCH TOP SCH (09:21)
[2018-01-27] MEDS: SODIUM CHLORIDE 0.9% (FLUSH) 10 ML SYG IV SCH ×2 (09:21→20:33)
--- NOTE | 2018-01-27 13:52 | PN ---
SUPERVISING PHYSICIAN: Hay Parker MD DATE: 01/27/18 SUBJECTIVE: The patient has diuresed well overnight. She is still planning to be discharged to the [place] group home. The patient has no complaints of shortness of breath, nausea, vomiting, diarrhea or constipation. She feels much better than she has in the last several days. OBJECTIVE: VITAL SIGNS: Afebrile. Heart rate 73. Blood pressure 159/82. Respiratory rate 20. O2 sat 93% on room air. Intake and output: The patient has a negative 6255 mL. RESPIRATORY: Essentially clear to auscultation bilaterally. CARDIAC: Regular rate and rhythm. GASTROINTESTINAL: Abdomen is soft, nondistended, nontender. Bowel sounds are positive. EXTREMITIES: No cyanosis, clubbing or edema. NEUROLOGIC: Awake, alert and oriented times three. LABORATORY: Sodium 139, potassium 3.1, chloride 96, carbon dioxide 33. BNP is slightly increased at 2960 and her troponin is slightly elevated at 0.18. Chest x-ray is improved from yesterday and shows stable mild pulmonary vascular continue. All other labs and films have been reviewed via the EMR. ASSESSMENT: 1. Acute on chronic congestive heart failure with echocardiogram per Dr. Rangel showing congestive heart failure with a diastolic etiology and ejection fraction of 40%. 2. Ischemic congestive cardiomyopathy showing improvement with diuresis with no reported chest pain. 3. Febrile illness, resolved, uncertain etiology. Not currently on antibiotics. 4. Diabetes mellitus on insulin, stable. 5. History of coronary artery disease. 6. Chronic tobacco abuse, encouraged to stop smoking. 7. Obesity as noted by body mass index of 33.7. PLAN: We will continue present supportive care. Discharge planning continues to plan on her being discharged to a group home in [place]. She has received some oral potassium replacement today. We are doing bladder training to discontinue the Tidwell catheter. Troponin is slightly elevated, but most likely due to the congestive heart failure. We will repeat it in the morning. I have also repeated labs as well as an x-ray. Plan for discharge tomorrow or the next day. Lasix has been changed to oral. We will continue to monitor the patient closely and follow as needed. Dr. Parker is the collaborating physician and available for consultation. #[id number] [facility]
[2018-01-27] MEDS: MAGNESIUM HYDROXIDE 30 ML UD PO SCH (20:32)
[2018-01-27] MEDS: ATORVASTATIN 20 MG TAB PO SCH (20:33)
[2018-01-27] MEDS: NITROGLYCERIN 0.4 MG/HR PATCH TOP SCH (20:33)
[2018-01-27] MEDS ORDERED: TEMAZEPAM 15 MG CAP PO PRN (21:20)
[2018-01-27] MEDS ORDERED: ALBUTEROL SULFATE 2.5 MG/3 ML VIAL NEB PRN (21:47)
[2018-01-28] MEDS: FAMOTIDINE 20 MG TAB PO SCH (06:50)
[2018-01-28] MEDS: INSULIN LISPRO 100 UNITS/ML PEN SUBCU SCH ×2 (07:18→11:40)
[2018-01-28] MEDS: POTASSIUM CHLORIDE 20 MEQ TAB PO SCH (07:42)
--- NOTE | 2018-01-28 08:22 | RAD ---
EXAM DESCRIPTION: XR CHEST 2 VIEWS CLINICAL HISTORY: Congestive heart failure COMPARISON: 01/27/2018 TECHNIQUE: PA/lateral FINDINGS: Previous cardiac surgery. Cardiomegaly with worsening vascular congestion and mild interstitial edema. No alveolar consolidation or pleural effusion. Lungs are hyperinflated. No pneumothorax IMPRESSION: Congestive heart failure with slight increase in interstitial edema Electronically signed by: Hay Turner MD 01/28/2018 8:20 AM CDT
[2018-01-28] MEDS: ALBUTEROL SULFATE 2.5 MG/3 ML VIAL NEB SCH ×2 (08:27→12:27)
[2018-01-28] MEDS: POLYETHYLENE GLYCOL 3350 17 GM PCKT PO SCH (09:12)
[2018-01-28] MEDS: AMIODARONE HCL 200 MG TAB PO SCH (09:13)
[2018-01-28] MEDS: ISOSORBIDE MONONITRATE (IMDUR) 30 MG TAB PO SCH (09:13)
[2018-01-28] MEDS: CLOPIDOGREL 75 MG TAB PO SCH (09:13)
[2018-01-28] MEDS: ENOXAPARIN SODIUM 80 MG/0.8 ML SYG SUBCU SCH (09:13)
[2018-01-28] MEDS: LISINOPRIL 10 MG TAB PO SCH (09:14)
[2018-01-28] MEDS: PARoxetine HCL 20 MG TAB PO SCH (09:14)
[2018-01-28] MEDS: BISACODYL TAB 5 MG TAB PO SCH (09:14)
[2018-01-28] MEDS: CARVEDILOL 3.125 MG TAB PO SCH (09:14)
[2018-01-28] MEDS: FUROSEMIDE 40 MG TAB PO SCH (09:14)
[2018-01-28] MEDS: amLODIPine BESYLATE 5 MG TAB PO SCH (09:15)
[2018-01-28] MEDS: cloNIDine HCL 0.1 MG TAB PO SCH (09:15)
[2018-01-28] MEDS: INSULIN DETEMIR 100 UNITS/ML PEN SUBCU SCH (09:18)
[2018-01-28] MEDS: SODIUM CHLORIDE 0.9% (FLUSH) 10 ML SYG IV SCH (09:21)
[2018-01-28] MEDS: REMOVE OLD PATCH TOP SCH (09:30)
--- NOTE | 2018-01-28 11:32 | DS ---
SUPERVISING PHYSICIAN: Hay Parker MD DISCHARGE DIAGNOSIS: 1. Acute on chronic congestive heart failure with echocardiogram per Dr. Rangel showing congestive heart failure with a diastolic etiology and ejection fraction of 40%. 2. Ischemic congestive cardiomyopathy showing improvement with diuresis with no reported chest pain. Her troponins have been slightly elevated, but are trending down at this point. 3. Febrile illness, resolved, uncertain etiology. Not currently on antibiotics. 4. Diabetes mellitus on insulin, stable. 5. History of coronary artery disease. 6. Chronic tobacco abuse, encouraged to stop smoking. 7. Obesity as noted by body mass index of 33.7. HISTORY OF PRESENT ILLNESS: This is a 57-year-old, female patient who resides at [facility] who presented to the Emergency Room today secondary to worsening edema to her lower extremities, abdomen as well as increasing shortness of breath with any activity or lying back. She has a history of chronic obstructive pulmonary disease and congestive heart failure and takes diuretics. She notes she has had approximately a 15 to 20 pound weight gain over baseline status within the recent weeks and has attempted to take an extra Lasix as needed for additional swelling, but was not allowed to [facility]. She denies any chest pain, palpitations or syncope. Her laboratory studies showed an elevated BNP of 2630 with troponin 0.13 but normal CK and CK-MB. Chest x-ray, two-view, per radiologic interpretation showed cardiomegaly with pulmonary vascular congestion without any overt pulmonary edema. In the Emergency Room, vital signs were stable. She did have a low grade temperature of 100.1. White count was normal at 6.2 and no left shift. Urinalysis showed just a trace of blood with 100 protein, otherwise within normal limits. She notes she has had some nasal congestion and runny nose over the last week, but denies any significant cough. Given her history, current BNP and symptomatology, she was given a dose of Lasix that included 80 mg initially p.o. in the Emergency Room without any significant response to the Lasix. The patient is now going to be admitted to the Medical/Surgical Floor for acute exacerbation of congestive heart failure. She was admitted in stable condition. HOSPITAL COURSE: The patient was aggressively diuresed and actually diuresed approximately 7 liters within the first 36 hours after admission. She was on the congestive heart failure guidelines. She also received one dose of Zaroxolyn. After 48 hours, she resumed her p.o. Lasix as well as her regular medications. She saw Dr. Rangel, wraparound facilitator, in consultation. Dr. Rangel recommended that she continue with diuresis as had been ordered. He believed that the elevation in her troponin was due to the fluid overload with ischemic changes. Her echocardiogram by Dr. Rangel showed an ejection fraction of 40% with diastolic etiology. She has been accepted to [facility] on discharge. She will be discharged today. DISCHARGE PLAN: The patient will be discharged to [facility] in [place], [place]. She is to resume her previous medications as well as close followup with the general medical practitioner at the [facility] and establish care with a wraparound facilitator or she can continue following up with Dr. Rangel here in [place]. Her home medications have been resumed including albuterol treatments. She is to return to the hospital Emergency Room or followup with her primary care physician for any further problems or complications. She is also to be evaluated for physical therapy at the [facility]. DISCHARGE MEDICATIONS: 1. Potassium chloride. 2. Paroxetine. 3. Furosemide. 4. Clopidogrel. 5. Clonidine. 6. Lipitor. 7. Amlodipine. 8. Levemir insulin. 9. Milk of Magnesia. 10. Pepcid. 11. Zofran. 12. Albuterol sulfate. 13. Hydrocodone. 14. Nitroglycerin. 15. Acetaminophen with codeine. 16. Amiodarone. 17. Lisinopril. 18. Acetaminophen. 19. Carvedilol. 20. NovoLog insulin with sliding scale. Dr. Parker is the collaborating physician and available for consultation. #[id number] [facility]
[2018-01-28 14:02] VITALS: BP 150/78; TEMP 98.3; O2SAT 99
== END 2018-01-28 15:20 | DRG 293 ==
LOC: ER 14:23 → MS 18:05
PROVIDERS: ADMIT Nurse Practitioner Family; ATTEND Nurse Practitioner Acute Care
DX: I11.0 Hypertensive heart disease with heart failure (principal); I50.33 Acute on chronic diastolic (congestive) heart failure; I25.5 Ischemic cardiomyopathy; R50.9 Fever, unspecified; E11.9 Type 2 diabetes mellitus without complications; I25.10 Atherosclerotic heart disease of native coronary artery without angina pectoris; R74.8 Abnormal levels of other serum enzymes; I45.10 Unspecified right bundle-branch block; K21.9 Gastro-esophageal reflux disease without esophagitis; J44.9 Chronic obstructive pulmonary disease, unspecified; E66.9 Obesity, unspecified; F17.210 Nicotine dependence, cigarettes, uncomplicated; Z68.33 Body mass index [BMI] 33.0-33.9, adult; Z95.1 Presence of aortocoronary bypass graft; Z99.81 Dependence on supplemental oxygen; Z79.02 Long term (current) use of antithrombotics/antiplatelets; Z79.4 Long term (current) use of insulin; Z79.891 Long term (current) use of opiate analgesic; Z88.5 Allergy status to narcotic agent; Z79.899 Other long term (current) drug therapy